=== PATIENT | female | born 1950 | race Caucasian/White ===

== ENCOUNTER → 2018-01-14 09:23 | Outpatient (CLI) | payer OTHER, SELFPAY ==
[2018-01-14 10:27] LABS: Alanine Aminotransferase 25 IU/L (9-52); Albumin 4.2 g/dL (3.5-5.0); Albumin Globulin Ratio 1.5 (1.0-2.8); Alkaline Phosphatase 76 U/L (38-126); Aspartate Aminotransferase 21 IU/L (14-36); Bilirubin Total 0.3 mg/dL (0.2-1.3); Blood Urea Nitrogen 18 mg/dL (7-17); Calcium 9.7 mg/dL (8.4-10.2); Carbon Dioxide 29 mmol/L (22-32); Chloride 101 mmol/L (98-107); Estimated Glomerular Filt Rate > 60.0 mL/min (>60); Globulin 2.8 g/dL (1.7-4.1); Glucose 92 mg/dL (80-110); HEMOLYSIS < 15 (0-50); Potassium 4.7 mmol/L (3.4-5.1); Sodium 143 mmol/L (137-145)
[2018-01-14 11:00] LABS: Vitamin D 25 Hydroxy (D3) 46.8 ng/mL (30.0-100.0)
== END ==
PROVIDERS: PCP Physician Assistant; Visit Provider Physician Assistant
DX: G43.709 Chronic migraine without aura, not intractable, without status migrainosus (principal)
CPT/HCPCS: 36415; 80053; 82306

== ENCOUNTER → 2018-01-21 10:21 | Outpatient (CLI) | payer OTHER, SELFPAY ==
--- NOTE | 2018-01-21 10:22 | DI.RAD.S_ITS ---
PROCEDURE: XR SHOULDER RT MIN 2V INDICATIONS: Pain right shoulder (delt) with abduction/internal rotation TECHNIQUE: 3 views of the shoulder were acquired. COMPARISON: [facility], , SHOULDER MINIMUM 2 VIEW LEFT, 11/14/2016, 9:18. FINDINGS: Bones: No fractures or dislocations. No suspicious bony lesions. Visualized ribs appear intact. Severe AC joint degeneration. Mild spurring and subchondral sclerosis at the glenohumeral joint Soft tissues: No suspicious soft tissue calcifications. IMPRESSION: Right shoulder degeneration as above. Dictated by: Randy Richardson M.D. on 01/21/2018 at 12:52 Approved by: Randy Richardson M.D. on 01/21/2018 at 12:53
== END ==
PROVIDERS: PCP Physician Assistant; Visit Provider Physician Assistant
DX: M25.511 Pain in right shoulder (principal); M19.011 Primary osteoarthritis, right shoulder
CPT/HCPCS: 73030

== ENCOUNTER → 2018-02-26 11:17 | Outpatient (CLI) | payer OTHER, SELFPAY ==
--- NOTE | 2018-02-26 11:18 | DI.MG.S_ITS ---
Patient Name: JAVIER MADERA date: 1950 Sex: F Attending Physician: Ramírez Indications: Date: 02/26/2018 11:40 At the request of: JAVIER STROUD Procedure: MM screening mammo BI BILATERAL DIGITAL SCREENING MAMMOGRAM 3D/2D WITH CAD: 02/26/2018 Comparison is made to exams dated: 02/05/2017 mammogram, 01/26/2016 mammogram, and 07/22/2014 mammogram - [facility]. The tissue of both breasts is heterogeneously dense. This may lower the sensitivity of mammography. Current study was also evaluated with a Computer Aided Detection (CAD) system. There are benign calcifications in both breasts. No significant masses, calcifications, or other findings are seen in either breast. There has been no significant interval change. IMPRESSION: There is no mammographic evidence of malignancy. A 1 year screening mammogram is recommended. This exam was interpreted at Station ID: [id number]. NOTE: For mammograms, a report in lay terms will be sent to the patient. Approximately 15% of breast malignancies will not be visualized mammographically. In the management of a palpable breast mass, a negative mammogram must not discourage biopsy of a clinically suspicious lesion. Electronically Signed By: Ab martinez/tina:02/26/2018 21:46:45 letter sent: Normal Exam ACR BI-RADS Category 2: Benign Finding(s) 3342F
== END ==
PROVIDERS: PCP Physician Assistant; Visit Provider Physician Assistant
DX: Z12.31 Encounter for screening mammogram for malignant neoplasm of breast (principal)
CPT/HCPCS: 77063; 77067

== ENCOUNTER → 2018-02-27 13:45 | Outpatient (CLI) | payer OTHER, SELFPAY ==
--- NOTE | 2018-02-27 14:56 | PM.TREADMILL ---
Cardiac Stress Test Report Referral & Results Date Patient Seen: 02/27/18 Requesting provider: Denia Elmore Indication: Chest pain, shortness of breath Rest ECG: Unremarkable Procedure Note: Today following both written and verbal informed consent, the patient was exercised according to a standard Elian protocol. The patient exercised for a total of 6 min 19 sec achieving a maximum heart rate of 149. Patient's maximum systolic blood pressure was 240. This was an estimated 7.0 MET's. There are no ST-T segment changes Normal heart rate response to exercise, peak blood pressure was somewhat hypertensive Oxygen saturation remained normal throughout Functional aerobic impairment rated-20% on the sedentary scale or 120% normal No dysrhythmias Impression: No evidence of ischemia Slightly hypertensive response to exercise Better than average exercise capacity Please note: Actual ECG tracings can be found in the PACS system.
== END ==
PROVIDERS: PCP Physician Assistant; Visit Provider Physician Assistant
DX: R07.9 Chest pain, unspecified (principal); R06.02 Shortness of breath; R06.09 Other forms of dyspnea
CPT/HCPCS: 93016; 93017; 93018

== ENCOUNTER → 2018-12-07 10:06 | Outpatient (CLI) | payer OTHER, SELFPAY | PROVIDERS: PCP Physician Assistant; Visit Provider Physician Assistant | DX: Z13.820 Encounter for screening for osteoporosis (principal); Z78.0 Asymptomatic menopausal state; R29.890 Loss of height; Z90.722 Acquired absence of ovaries, bilateral; Z87.891 Personal history of nicotine dependence | CPT/HCPCS: 77080 ==

== ENCOUNTER → 2019-03-16 09:19 | Outpatient (CLI) | payer MEDICARE, SELFPAY ==
--- NOTE | 2019-03-16 09:21 | DI.MG.S_ITS ---
BILATERAL DIGITAL SCREENING MAMMOGRAM 3D/2D WITH CAD: 03/16/2019 CLINICAL: Routine screening. Comparison is made to exams dated: 02/26/2018 mammogram, 02/05/2017 mammogram, 01/26/2016 mammogram, and 07/22/2014 mammogram - [facility]. The tissue of both breasts is heterogeneously dense. This may lower the sensitivity of mammography. Current study was also evaluated with a Computer Aided Detection (CAD) system. There are benign calcifications in both breasts. There is a mole marker on the right breast. There are mole markers on the left breast. No significant masses, calcifications, or other findings are seen in either breast. There has been no significant interval change. IMPRESSION: There is no mammographic evidence of malignancy. A 1 year screening mammogram is recommended. This exam was interpreted at Station ID: [id number]. NOTE: For mammograms, a report in lay terms will be sent to the patient. Approximately 15% of breast malignancies will not be visualized mammographically. In the management of a palpable breast mass, a negative mammogram must not discourage biopsy of a clinically suspicious lesion. Electronically Signed By: Ab martinez/tina:03/16/2019 10:43:16 letter sent: Normal Exam ACR BI-RADS Category 2: Benign Finding(s) 3342F
[2019-03-16 11:42] LABS: Alanine Aminotransferase 11 IU/L (<35); Albumin 4.2 g/dL (3.5-5.0); Albumin Globulin Ratio 1.2 (1.0-2.8); Alkaline Phosphatase 95 U/L (38-126); Aspartate Aminotransferase 21 IU/L (14-36); BUN Creatinine Ratio 25.6 (6-22); Bilirubin Total 0.5 mg/dL (0.2-1.3); Blood Urea Nitrogen 23 mg/dL (7-17); Calcium 9.9 mg/dL (8.4-10.2); Carbon Dioxide 27 mmol/L (22-32); Chloride 99 mmol/L (98-107); Estimated Glomerular Filt Rate > 60.0 mL/min (>60); Globulin 3.5 g/dL (1.7-4.1); Glucose 87 mg/dL (80-110); HEMOLYSIS < 15 (0-50); Potassium 4.8 mmol/L (3.4-5.1); Sodium 138 mmol/L (137-145); Total Protein 7.7 g/dL (6.3-8.2)
== END ==
PROVIDERS: PCP Physician Assistant; Visit Provider Physician Assistant
DX: Z12.31 Encounter for screening mammogram for malignant neoplasm of breast (principal); M81.0 Age-related osteoporosis without current pathological fracture; Z13.220 Encounter for screening for lipoid disorders; Z13.6 Encounter for screening for cardiovascular disorders; Z82.3 Family history of stroke; Z82.49 Family history of ischemic heart disease and other diseases of the circulatory system
CPT/HCPCS: 36415; 77063; 77067; 80053

== ENCOUNTER → 2019-10-12 10:44 | Outpatient (CLI) | payer MEDICARE, SELFPAY ==
[2019-10-12 13:58] LABS: Alanine Aminotransferase 14 IU/L (<35); Albumin 4.3 g/dL (3.5-5.0); Albumin Globulin Ratio 1.3 (1.0-2.8); Alkaline Phosphatase 110 U/L (38-126); Aspartate Aminotransferase 26 IU/L (14-36); BUN Creatinine Ratio 21.3 (6-22); Bilirubin Total 0.5 mg/dL (0.2-1.3); Blood Urea Nitrogen 19 mg/dL (7-17); Carbon Dioxide 29 mmol/L (22-32); Chloride 101 mmol/L (98-107); Estimated Glomerular Filt Rate > 60.0 mL/min (>60); Globulin 3.4 g/dL (1.7-4.1); Glucose 81 mg/dL (80-110); HEMOLYSIS < 15 (0-50); Potassium 5.1 mmol/L (3.4-5.1); Sodium 139 mmol/L (137-145); Total Protein 7.7 g/dL (6.3-8.2)
== END ==
PROVIDERS: PCP Registered Nurse; Referring Provider Registered Nurse; Visit Provider Registered Nurse
DX: I10 Essential (primary) hypertension (principal); G43.909 Migraine, unspecified, not intractable, without status migrainosus
CPT/HCPCS: 36415; 80053

== ENCOUNTER → 2019-11-30 07:36 | Outpatient (CLI) | payer MEDICARE, SELFPAY ==
[2019-11-30 08:44] LABS: Cholesterol 132 mg/dL (140-199); HDL Cholesterol 35 mg/dL (40-60); LDL Cholesterol Calculated 76 mg/dL (<100); Triglycerides 106 mg/dL (35-150)
== END ==
PROVIDERS: PCP Registered Nurse; Referring Provider Registered Nurse; Visit Provider Registered Nurse
DX: Z82.49 Family history of ischemic heart disease and other diseases of the circulatory system (principal)
CPT/HCPCS: 36415; 80061

== ENCOUNTER → 2019-12-09 09:47 | Outpatient (CLI) | payer MEDICARE, SELFPAY ==
[2019-12-09 11:17] LABS: Alanine Aminotransferase 14 IU/L (<35); Albumin 4.2 g/dL (3.5-5.0); Albumin Globulin Ratio 1.2 (1.0-2.8); Alkaline Phosphatase 104 U/L (38-126); Aspartate Aminotransferase 22 IU/L (14-36); BUN Creatinine Ratio 21.1 (6-22); Bilirubin Total 0.4 mg/dL (0.2-1.3); Blood Urea Nitrogen 20 mg/dL (7-17); Calcium 9.4 mg/dL (8.4-10.2); Carbon Dioxide 29 mmol/L (22-32); Chloride 104 mmol/L (98-107); Estimated Glomerular Filt Rate 58.5 mL/min (>60); Globulin 3.5 g/dL (1.7-4.1); Glucose 117 mg/dL (80-110); HEMOLYSIS < 15 (0-50); Potassium 4.2 mmol/L (3.4-5.1); Sodium 139 mmol/L (137-145); Total Protein 7.7 g/dL (6.3-8.2)
[2019-12-09 16:45] LABS: Microalbumin Urine Random < 0.6 mg/dL (0-1.6)
== END ==
PROVIDERS: PCP Registered Nurse; Referring Provider Registered Nurse; Visit Provider Registered Nurse
DX: I10 Essential (primary) hypertension (principal)
CPT/HCPCS: 36415; 80053; 82043; 82570

== ENCOUNTER → 2019-12-16 12:06 | Outpatient (CLI) | payer MEDICARE, SELFPAY ==
--- NOTE | 2019-12-16 12:08 | DI.US.S_ITS ---
PROCEDURE: US THYROID INDICATIONS: RIGHT NECK LUMP TECHNIQUE: Real-time scanning was performed of the thyroid gland, with image documentation. COMPARISON: None. FINDINGS: Right: Thyroid lobe measures 5.7 x 1.9 x 1.9 cm, and is homogeneous in echotexture. Left: Thyroid lobe measures 4.3 x 1.2 x 1.4 cm, and is homogenous in echotexture. Isthmus: 1.9 mm thick. Nodule number: 1 Location: Left inferior Size: 1.0 x 0.5 x 0.6 cm. Composition: Solid Echogenicity: Isoechoic Shape: wider than tall. Margins: Smooth Echogenic foci: None Total points: 3 ACR TI-RADS category: Mildly suspicious Nodule number: 2 Location: Left superior Size: 0.5 x 0.4 x 0.5 cm. Composition: Solid Echogenicity: Isoechoic Shape: wider than tall. Margins: Smooth Echogenic foci: None Total points: 3 ACR TI-RADS category: Mildly suspicious Nodule number: 3 Location: Right superior Size: 2.6 x 1.8 x 2.1 cm. Composition: Mixed cystic and solid Echogenicity: Indeterminate Shape: wider than tall. Margins: Smooth Echogenic foci: None Total points: 4 ACR TI-RADS category: Moderately suspicious Nodule number: 4 Location: Right inferior Size: 1.1 x 1.2 x 0.9 cm. Composition: Solid Echogenicity: Isoechoic Shape: wider than tall. Margins: Smooth Echogenic foci: None Total points: 3 ACR TI-RADS category: Mildly suspicious Nodule number: 5 Location: Right inferior Size: 1.0 x 0.8 x 0.9 cm. Composition: Solid Echogenicity: Hypoechoic Shape: wider than tall. Margins: Smooth Echogenic foci: None Total points: 4 ACR TI-RADS category: moderately suspicious IMPRESSION: Bilateral thyroid nodules as above. Recommend sonographically directed fine-needle aspiration involving the right #3 nodule. ACR TI-RADS definitions and recommendations: TI-RADS 1 (benign): 0 points. FNA not needed. TI-RADS 2 (not suspicious): 2 points. FNA not needed. TI-RADS 3 (mildly suspicious): 3 points. * FNA if 2.5 cm or larger, follow up if 1.5 cm or larger (at 1, 3, and 5 years). TI-RADS 4 (moderately suspicious): 4-6 points. * FNA if 1.5 cm or larger, follow up if 1 cm or larger (at 1, 2, 3, and 5 years). TI-RADS 5 (highly suspicious): 7 points or more. * FNA if 1 cm or larger, follow up if 0.5 cm or larger (every year for 5 years). Dictated by: Osorio Acuña RR Interpreted: Jorge Giles MD on 12/16/2019 at 13:13 Approved by: Jorge Giles M.D. on 12/16/2019 at 14:52
== END ==
PROVIDERS: PCP Registered Nurse; Referring Provider Registered Nurse; Visit Provider Registered Nurse
DX: E04.2 Nontoxic multinodular goiter (principal)
CPT/HCPCS: 76536

== ENCOUNTER → 2019-12-22 09:36 | Outpatient (CLI) | payer MEDICARE, SELFPAY ==
[2019-12-22 11:04] LABS: BUN Creatinine Ratio 25.5 (6-22); Blood Urea Nitrogen 25 mg/dL (7-17); Calcium 9.8 mg/dL (8.4-10.2); Carbon Dioxide 29 mmol/L (22-32); Chloride 101 mmol/L (98-107); Estimated Glomerular Filt Rate 56.4 mL/min (>60); Glucose 97 mg/dL (80-110); HEMOLYSIS < 15 (0-50); Potassium 4.8 mmol/L (3.4-5.1); Sodium 137 mmol/L (137-145)
[2019-12-22 11:23] LABS: Free T4, Direct Thyroxine 1.11 ng/dL (0.78-2.19)
[2019-12-22 11:37] LABS: Thyroid Stimulating Hormone 1.72 uIU/mL (0.47-4.68)
== END ==
PROVIDERS: PCP Registered Nurse; Referring Provider Registered Nurse; Visit Provider Registered Nurse
DX: N28.9 Disorder of kidney and ureter, unspecified (principal); R22.1 Localized swelling, mass and lump, neck
CPT/HCPCS: 36415; 80048; 84439; 84443

== ENCOUNTER → 2020-01-20 12:33 | Outpatient (CLI) | payer MEDICARE, SELFPAY ==
[2020-01-20 13:55] LABS: Thyroid Stimulating Hormone 1.55 uIU/mL (0.47-4.68)
== END ==
PROVIDERS: PCP Registered Nurse; Referring Provider Otolaryngology; Visit Provider Otolaryngology
DX: E04.1 Nontoxic single thyroid nodule (principal)
CPT/HCPCS: 36415; 84443

== ENCOUNTER → 2020-01-26 11:19 | Outpatient (CLI) | payer MEDICARE, SELFPAY ==
[2020-01-26 12:47] LABS: Add Manual Diff / Slide Review NO; Basophils Absolute Auto 0 /uL (0-100); Basophils Percent Auto 0.4 % (0-2); Eosinophils Absolute Auto 200 /uL (0-450); Eosinophils Percent Auto 2.8 % (2-4); Lymphocytes Absolute Auto 1100 /uL (1100-4500); Lymphocytes Percent Auto 20.1 % (25-40); Mean Corpuscular HGB Conc 32.1 % (30-36); Mean Corpuscular Hemoglobin 25.8 PG (26-34); Mean Corpuscular Volume 80.4 fL (80-100); Monocytes Absolute Auto 400 /uL (0-900); Monocytes Percent Auto 6.2 % (3-14); Neutrophils Absolute Auto 4000 /uL (1500-7000); Neutrophils Percent Auto 70.5 % (50-75); Platelet Count 341 X10^3/uL (150-400); Red Blood Cell Count 3.86 X10^6/uL (4.0-5.2); Red Cell Distribution Width 16.6 % (11.6-14.8); White Blood Cell Count 5.7 X10^3/uL (4.5-11.0)
== END ==
PROVIDERS: PCP Registered Nurse; Referring Provider Registered Nurse; Visit Provider Registered Nurse
DX: M81.0 Age-related osteoporosis without current pathological fracture (principal); Z13.6 Encounter for screening for cardiovascular disorders
CPT/HCPCS: 36415; 85025

== ENCOUNTER → 2020-01-27 12:19 | Outpatient (CLI) | payer MEDICARE, SELFPAY ==
[2020-01-27 12:55] LABS: Add Manual Diff / Slide Review NO; Basophils Absolute Auto 0 /uL (0-100); Basophils Percent Auto 0.2 % (0-2); Eosinophils Absolute Auto 100 /uL (0-450); Eosinophils Percent Auto 2.2 % (2-4); Hemoglobin 10.2 g/dL (12.0-16.0); Lymphocytes Absolute Auto 1200 /uL (1100-4500); Lymphocytes Percent Auto 21.2 % (25-40); Mean Corpuscular Hemoglobin 26.2 PG (26-34); Mean Corpuscular Volume 79.6 fL (80-100); Monocytes Absolute Auto 300 /uL (0-900); Monocytes Percent Auto 4.7 % (3-14); Neutrophils Absolute Auto 4200 /uL (1500-7000); Neutrophils Percent Auto 71.7 % (50-75); Platelet Count 325 X10^3/uL (150-400); Red Blood Cell Count 3.89 X10^6/uL (4.0-5.2); Red Cell Distribution Width 16.6 % (11.6-14.8); White Blood Cell Count 5.9 X10^3/uL (4.5-11.0)
[2020-01-27 13:40] LABS: Total Iron Binding Capacity 272 ug/dL (265-497)
[2020-01-27 13:45] LABS: Ferritin 91 ng/mL (11-264)
[2020-01-27 14:16] LABS: Folate > 20.0 ng/mL (2.76-20.0); Vitamin B12 408 pg/mL (239-931)
== END ==
PROVIDERS: PCP Registered Nurse; Referring Provider Registered Nurse; Visit Provider Registered Nurse
DX: D64.9 Anemia, unspecified (principal); M81.0 Age-related osteoporosis without current pathological fracture; Z13.6 Encounter for screening for cardiovascular disorders
CPT/HCPCS: 36415; 82607; 82728; 82746; 83550; 85025

== ENCOUNTER → 2020-02-14 10:08 | Outpatient (CLI) | payer MEDICARE, SELFPAY ==
[2020-02-15 16:38] LABS: Fecal Immunochemical Test Negative (Negative)
== END ==
PROVIDERS: PCP Registered Nurse; Referring Provider Registered Nurse; Visit Provider Registered Nurse
DX: D64.9 Anemia, unspecified (principal)
CPT/HCPCS: 82274

== ENCOUNTER → 2020-03-16 15:44 | Outpatient (CLI) | payer MEDICARE, SELFPAY ==
[2020-03-16] MEDS: COVID-19 VACC #1, MRNA(MOD) 100 MCG/0.5 ML VIAL IM (15:48)
== END ==
PROVIDERS: PCP Registered Nurse; Visit Provider Internal Medicine
DX: Z23 Encounter for immunization (principal)
CPT/HCPCS: 0011A; 91301

== ENCOUNTER → 2020-03-30 11:01 | Outpatient (CLI) | payer MEDICARE, SELFPAY ==
--- NOTE | 2020-03-30 11:03 | DI.MG.S_ITS ---
BILATERAL DIGITAL SCREENING MAMMOGRAM 3D/2D WITH CAD: 03/30/2020 CLINICAL: Routine screening. Comparison is made to exams dated: 03/16/2019 mammogram, 02/26/2018 mammogram, and 02/05/2017 mammogram - [facility]. The tissue of both breasts is heterogeneously dense. This may lower the sensitivity of mammography. Current study was also evaluated with a Computer Aided Detection (CAD) system. There are benign calcifications in both breasts. There is a mole marker on the right breast. There are mole markers on the left breast. No significant masses, calcifications, or other findings are seen in either breast. There has been no significant interval change. IMPRESSION: BENIGN There is no mammographic evidence of malignancy. A 1 year screening mammogram is recommended. This exam was interpreted at Station ID: [id number]. NOTE: For mammograms, a report in lay terms will be sent to the patient. Approximately 15% of breast malignancies will not be visualized mammographically. In the management of a palpable breast mass, a negative mammogram must not discourage biopsy of a clinically suspicious lesion. Electronically Signed By: Nikita ruggiero/tina:03/30/2020 14:26:23 letter sent: Normal Exam ACR BI-RADS Category 2: Benign Finding(s) 3342F
== END ==
PROVIDERS: PCP Registered Nurse; Referring Provider Registered Nurse; Visit Provider Registered Nurse
DX: Z12.31 Encounter for screening mammogram for malignant neoplasm of breast (principal)
CPT/HCPCS: 77063; 77067

== ENCOUNTER → 2020-04-04 12:50 | Outpatient (CLI) | payer MEDICARE, SELFPAY ==
[2020-04-04 15:33] LABS: Thyroid Stimulating Hormone 2.21 uIU/mL (0.47-4.68)
[2020-04-04 15:44] LABS: Alanine Aminotransferase 15 IU/L (<35); Albumin 3.8 g/dL (3.5-5.0); Albumin Globulin Ratio 1.3 (1.0-2.8); Alkaline Phosphatase 100 U/L (38-126); Aspartate Aminotransferase 24 IU/L (14-36); BUN Creatinine Ratio 19.4 (6-22); Bilirubin Total 0.1 mg/dL (0.2-1.3); Blood Urea Nitrogen 20 mg/dL (7-17); Calcium 9.5 mg/dL (8.4-10.2); Carbon Dioxide 30 mmol/L (22-32); Chloride 103 mmol/L (98-107); Estimated Glomerular Filt Rate 53.3 mL/min (>60); Glucose 89 mg/dL (80-110); HEMOLYSIS < 15 (0-50); Potassium 4.4 mmol/L (3.4-5.1); Sodium 139 mmol/L (137-145); Total Protein 6.8 g/dL (6.3-8.2)
== END ==
PROVIDERS: PCP Registered Nurse; Referring Provider Otolaryngology; Visit Provider Otolaryngology
DX: E03.9 Hypothyroidism, unspecified (principal); I10 Essential (primary) hypertension; R89.9 Unspecified abnormal finding in specimens from other organs, systems and tissues
CPT/HCPCS: 36415; 80053; 84443

== ENCOUNTER → 2020-04-13 16:07 | Outpatient (CLI) | payer MEDICARE, SELFPAY ==
[2020-04-13] MEDS: COVID-19 VACC #2, MRNA(MOD) 100 MCG/0.5 ML VIAL IM (16:20)
== END ==
PROVIDERS: PCP Registered Nurse; Visit Provider Internal Medicine
DX: Z23 Encounter for immunization (principal)
CPT/HCPCS: 0012A; 91301

== ENCOUNTER → 2020-04-17 12:45 | Outpatient (CLI) | payer MEDICARE, SELFPAY ==
[2020-04-17 13:56] LABS: Add Manual Diff / Slide Review NO; Basophils Absolute Auto 0 /uL (0-100); Basophils Percent Auto 0.5 % (0-2); Eosinophils Absolute Auto 200 /uL (0-450); Eosinophils Percent Auto 3.5 % (2-4); Hematocrit 29.7 % (36-46); Hemoglobin 9.6 g/dL (12.0-16.0); Lymphocytes Absolute Auto 1300 /uL (1100-4500); Lymphocytes Percent Auto 22.8 % (25-40); Mean Corpuscular HGB Conc 32.4 % (30-36); Mean Corpuscular Hemoglobin 26.2 PG (26-34); Mean Corpuscular Volume 80.9 fL (80-100); Monocytes Absolute Auto 400 /uL (0-900); Monocytes Percent Auto 6.4 % (3-14); Neutrophils Absolute Auto 3900 /uL (1500-7000); Neutrophils Percent Auto 66.8 % (50-75); Platelet Count 348 X10^3/uL (150-400); Red Blood Cell Count 3.68 X10^6/uL (4.0-5.2); Red Cell Distribution Width 16.1 % (11.6-14.8); White Blood Cell Count 5.9 X10^3/uL (4.5-11.0)
== END ==
PROVIDERS: PCP Registered Nurse; Referring Provider Registered Nurse; Visit Provider Registered Nurse
DX: D64.9 Anemia, unspecified (principal)
CPT/HCPCS: 36415; 85025

== ENCOUNTER → 2021-04-21 18:46 | Outpatient (CLI) | payer MEDICARE, SELFPAY ==
--- NOTE | 2021-04-21 18:49 | DI.RAD.S_ITS ---
PROCEDURE: XR ANKLE LT MIN 3V INDICATIONS: Ankle injury TECHNIQUE: 3 views of the ankle were acquired. COMPARISON: None. FINDINGS: Bones: No fractures or dislocations. Ankle mortise is normally aligned. No suspicious bony lesions. Plantar calcaneal bone spur. Soft tissues: No tibiotalar joint effusion. Achilles tendon appears normal. Lateral soft tissue swelling is noted and ligamentous injury cannot be excluded. IMPRESSION: No fracture. No osseous lesion. If symptoms and/or clinical suspicion for pathology persists, further assessment with repeat radiographs (7-10 days) or advanced imaging (e.g. CT, MRI or bone scan) should be considered. Dictated by: Namita Flannery MD, PhD on 04/21/2021 at 19:21 Approved by: Namita Flannery MD, PhD on 04/21/2021 at 19:22
== END ==
PROVIDERS: PCP Internal Medicine Geriatric Medicine; Referring Provider Nurse Practitioner Family; Visit Provider Nurse Practitioner Family
DX: S99.912A Unspecified injury of left ankle, initial encounter (principal); X58.XXXA Exposure to other specified factors, initial encounter
CPT/HCPCS: 73610

== ENCOUNTER 2021-06-26 10:51 | Emergency (ER) | payer MEDICARE, SELFPAY ==
[2021-06-26] VITALS (16 sets, daily range): BP systolic 116–195; BP diastolic 63–101; PULSE 47–63; RESP 12–36; TEMP 36.6; O2SAT 96–99; BMI 32.8
--- NOTE | 2021-06-26 11:09 | DI.RAD.S_ITS ---
PROCEDURE: XR CHEST 1V INDICATIONS: chest pain TECHNIQUE: One view of the chest was acquired. COMPARISON: None. FINDINGS: Surgical changes and devices: None. Lungs and pleura: Lungs are clear. No pleural effusions or pneumothorax. Mediastinum: Mediastinal contours appear normal. Heart size is normal. Bones and chest wall: No suspicious bony lesions. Overlying soft tissues appear unremarkable. IMPRESSION: No acute cardiopulmonary process demonstrated radiographically. Dictated by: Endy Laguna M.D. on 06/26/2021 at 11:58 Approved by: Endy Laguna M.D. on 06/26/2021 at 11:58
[2021-06-26 11:32] LABS: Add Manual Diff / Slide Review NO; Basophils Absolute Auto 0 /uL (0-100); Basophils Percent Auto 0.9 % (0-2); Eosinophils Absolute Auto 200 /uL (0-450); Eosinophils Percent Auto 4.7 % (2-4); Hematocrit 36.5 % (36-46); Hemoglobin 12.1 g/dL (12.0-16.0); Lymphocytes Absolute Auto 1400 /uL (1100-4500); Lymphocytes Percent Auto 31.9 % (25-40); Mean Corpuscular HGB Conc 33.2 % (30-36); Mean Corpuscular Hemoglobin 29.7 PG (26-34); Mean Corpuscular Volume 89.5 fL (80-100); Monocytes Absolute Auto 400 /uL (0-900); Monocytes Percent Auto 9.8 % (3-14); Neutrophils Absolute Auto 2400 /uL (1500-7000); Neutrophils Percent Auto 52.7 % (50-75); Platelet Count 378 X10^3/uL (150-400); Red Blood Cell Count 4.08 X10^6/uL (4.0-5.2); Red Cell Distribution Width 14.8 % (11.6-14.8); White Blood Cell Count 4.5 X10^3/uL (4.5-11.0)
--- NOTE | 2021-06-26 11:35 | ED.CHESTPAIN ---
HPI - Chest Pain General Chief Complaint: Chest Pain Stated Complaint: Chest pain Time Seen by Provider: 06/26/21 11:20 Source: patient Mode of arrival: Ambulatory History of Present Illness HPI narrative: 70-year-old female with history of renal cancer with partial left nephrectomy and total right nephrectomy, recurrent UTIs presenting today with epigastric and upper abdominal pain. She was seen evaluated last week by her primary care provider for some right flank pain. Thought to possibly be due to muscle strain although she does not remember a specific injury. It is not radiating down her leg occasionally goes to her abdomen, she started taking tizanidine, no significant relief. Today while resting she started having sudden onset epigastric pain Related Data Home Medications Medication Instructions Recorded Confirmed acetaminophen 650 mg 650 mg PO ONCE PRN 01/20/18 04/21/21 tablet,extended release phenazopyridine 95 mg tablet (Azo 95 mg PO TID PRN 08/11/18 04/21/21 Urinary Pain Relief) multivitamin (Daily Multi-Vitamin) 1 tab PO DAILY 11/26/19 04/21/21 Previous Rx's Medication Instructions Recorded trazodone 50 mg tablet 50 mg PO HS PRN PRN #90 tab 02/22/19 estradiol (Estrace) 1 gram VAG DAILY #85 gram 02/23/19 butalbital 50 mg-acetaminophen 325 1 tab PO Q4HP PRN #90 tab 03/22/19 mg tablet (Tencon) kqikreztvv-pqbvuecbmkvln-kgvdyzgp 1 tab PO Q4H PRN #90 tab 03/22/19 50 mg-325 mg-40 mg tablet cephalexin 500 mg capsule 500 mg PO BID PRN #60 cap 12/14/19 lisinopril 5 mg tablet 10 mg PO DAILY #180 tab 03/03/20 alendronate 70 mg tablet See Rx Instructions .ROUTE 06/29/20 .COMPLEX #12 tab verapamil 360 mg 24 hr See Rx Instructions .ROUTE 07/19/20 capsule,extended release .COMPLEX #90 cap hydrocodone 5 mg-acetaminophen 325 1 tab PO Q6H PRN #10 tab 06/26/21 mg tablet Allergies Allergy/AdvReac Type Severity Reaction Status Date / Time No Known Drug Allergies Allergy Verified 04/21/21 18:30 Review of Systems Review of Systems Narrative: GENERAL: Denies chills, fatigue, malaise, fever, sweats, travel HEENT: Denies sinus pain, ear pain, sore throat, difficulty swallowing, neck pain RESPIRATORY: Denies dyspnea, cough, wheezing, hemoptysis, sputum. CARDIOVASCULAR: Denies chest pain, palpitations, orthopnea, edema GASTROINTESTINAL: See HPI : See HPI MUSCULOSKELETAL: See HPI SKIN: No rash, no erythema, no pruritus NEUROLOGIC: Denies weakness, dizziness, headache, numbness, change in speech, confusion PSYCHIATRIC: No concerning psychosocial issues. 12 point review of systems is negative except for those stated above and HPI Patient History Surgical History H/O bladder repair surgery Status post bunionectomy Status post hysterectomy Status post tubal ligation Family History Father Heart attack Stroke Sister Malignant neoplasm of colon, unspecified part of colon Social History Smoking Status: Former smoker Tobacco: How many years used: 30 second hand exposure: No alcohol intake: current substance use type: does not use Smoking Status: Former smoker Alcohol type: other Substance Use Type: does not use Exam Initial Vital Signs Initial Vital Signs: Vital Signs Temperature 97.9 F 06/26/21 11:03 Pulse Rate 57 L 06/26/21 11:03 Respiratory Rate 17 06/26/21 11:03 Blood Pressure 116/63 06/26/21 11:03 Pulse Oximetry 98 06/26/21 11:03 GENERAL: Alert 70-year-old female appears uncomfortable HEENT: Head atraumatic,EOMI, pupils reactive, face symmetric, moist mucous membranes CARDIOVASCULAR: Regular rate and rhythm without murmurs, rubs or gallops. RESPIRATORY: Breath sounds equal bilaterally, no wheezes rales or rhonchi. ABDOMEN: Soft, tender epigastric right upper quadrant greater than left upper quadrant, no lower abdominal pain : Mild right flank pain no guarding or rebound EXTREMITIES: Normal range of motion, no clubbing or edema. Neurovascularly intact NEUROLOGICAL: Alert and oriented x4.Normal gait and speech. SKIN: Warm, dry, no laceration, no petechiae, no rashes or lesions. Scores HEART Score Heart Score history: Slightly Suspicious Heart Score EKG: Normal Heart Score Age: > or = 65 years old Heart Score risk factors: 1-2 risk factors Heart Score troponin: < or = to normal limit Heart Score Total: 3 Course Orders Ordered: ED Orders 06/26/21 11:09 XR chest 1V Stat EKG-12 Lead Stat 06/26/21 11:22 Complete Blood Count AUTO DIFF Stat Comprehensive Metabolic Panel Stat Lipase Stat Magnesium Stat Troponin & CK Cardiac Panel Stat 06/26/21 11:47 US abdomen limited Stat 06/26/21 11:49 CT abdomen pelvis wo con Stat 06/26/21 14:20 Trop I [Troponin I] Stat 06/26/21 15:24 EKG-12 Lead Routine Discontinued Medications Morphine Sulfate (Morphine 2 Mg/Ml Inj) 2 mg IV NOW ONE Stop: 06/26/21 11:48 Last Admin: 06/26/21 12:07 Dose: 2 mg Documented by: MEG Ondansetron HCl (Ondansetron 4 Mg/2 Ml Inj) 4 mg IV NOW ONE Stop: 06/26/21 12:18 Last Admin: 06/26/21 13:01 Dose: Not Given Documented by: PHI Vital Signs Vital signs: Vital Signs - 8 hr 06/26/21 11:30 06/26/21 11:31 06/26/21 12:05 Pulse Rate 51 L 53 L 48 L Respiratory Rate 30 H 33 H 36 H Blood Pressure 182/79 H Pulse Oximetry 98 98 99 06/26/21 12:30 06/26/21 13:00 06/26/21 13:30 Pulse Rate 47 L 63 53 L Respiratory Rate 22 19 13 Blood Pressure Pulse Oximetry 98 98 98 06/26/21 14:00 06/26/21 14:24 06/26/21 14:30 Pulse Rate 51 L 53 L 51 L Respiratory Rate 12 15 17 Blood Pressure 155/67 H Pulse Oximetry 97 97 97 06/26/21 15:00 06/26/21 15:11 06/26/21 15:30 Pulse Rate 54 L 55 L Respiratory Rate 13 20 Blood Pressure 179/78 H Pulse Oximetry 99 99 06/26/21 15:31 Pulse Rate 55 L Respiratory Rate 21 Blood Pressure 140/63 Pulse Oximetry 99 MDM - Chest Pain Lab Data Result diagrams: 06/26/21 11:22 06/26/21 11:22 Labs: Lab Results 06/26/21 06/26/21 06/26/21 Range/Units 11:22 11:22 14:20 WBC 4.5 (4.5-11.0) X10^3/uL RBC 4.08 (4.0-5.2) X10^6/uL Hgb 12.1 (12.0-16.0) g/dL Hct 36.5 (36-46) % MCV 89.5 (80-100) fL MCH 29.7 (26-34) PG MCHC 33.2 (30-36) % RDW 14.8 (11.6-14.8) % Plt Count 378 (150-400) X10^3/uL Neut % (Auto) 52.7 (50-75) % Lymph % (Auto) 31.9 (25-40) % [place] % (Auto) 9.8 (3-14) % Eos % (Auto) 4.7 H (2-4) % Baso % (Auto) 0.9 (0-2) % Neut # (Auto) 2400 (6161-4094) /uL Lymph # (Auto) 1400 (7517-2306) /uL [place] # (Auto) 400 (0-900) /uL Eos # (Auto) 200 (0-450) /uL Baso # (Auto) 0 (0-100) /uL Sodium 139 (137-145) mmol/L Potassium 4.4 (3.4-5.1) mmol/L Chloride 104 (98-107) mmol/L Carbon Dioxide 24 (22-32) mmol/L BUN 28 H (7-17) mg/dL Creatinine 1.53 H (0.52-1.04) mg/dL Estimated GFR 37 L (>60) mL/min BUN/Creatinine Ratio 18.3 (6-22) Glucose 119 H (80-110) mg/dL Calcium 10.2 (8.4-10.2) mg/dL Magnesium 2.1 (1.6-2.3) mg/dL Total Bilirubin 0.4 (0.2-1.3) mg/dL AST 31 (14-36) IU/L ALT 15 (<35) IU/L Alkaline Phosphatase 85 (38-126) U/L Total Creatine Kinase 70 (30-135) U/L CK-MB (CK-2) TNP CK-MB (CK-2) Rel Index TNP Troponin I < 0.012 < 0.012 (0.01-0.034) ng/mL Total Protein 7.7 (6.3-8.2) g/dL Albumin 4.7 (3.5-5.0) g/dL Globulin 3.0 (1.7-4.1) g/dL Albumin/Globulin Ratio 1.6 (1.0-2.8) Lipase 157 (23-300) U/L Imaging Data Chest x-ray: Radiologist's Impression: Signed Patient: Denia Garay MR#: [id number] : 1950 Acct:[id number] Age/Sex: 70 / F Date of Service: 06/26/21 Loc: ED Accession Number: [id number] ?? Procedure: XR chest 1V Ordering Provider: Nivia Delacruz D.O. PROCEDURE:? XR CHEST 1V ? INDICATIONS:? chest pain ? TECHNIQUE:? One view of the chest was acquired.? ? COMPARISON:? None. ? FINDINGS:? ? Surgical changes and devices:? None.? ? Lungs and pleura:? Lungs are clear.? No pleural effusions or pneumothorax.? ? Mediastinum:? Mediastinal contours appear normal.? Heart size is normal.? ? Bones and chest wall:? No suspicious bony lesions.? Overlying soft tissues appear unremarkable.? ? IMPRESSION:? No acute cardiopulmonary process demonstrated radiographically. ? ? Dictated by: Endy Laguna M.D. on 06/26/2021 at 11:58 ? ? Approved by: Endy Laguna M.D. on 06/26/2021 at 11:58 ? US - abdomen: Radiologist's Impression: Signed Patient: Denia Garay MR#: [id number] : 1950 Acct:[id number] Age/Sex: 70 / F Date of Service: 06/26/21 Loc: ED Accession Number: [id number] ?? Procedure: US abdomen limited Ordering Provider: Nivia eDlacruz D.O. PROCEDURE:? US ABDOMEN LIMITED ? INDICATIONS:? RUQ PAIN ? TECHNIQUE:? Real-time scanning was performed of the abdominal and retroperitoneal organs, with image documentation.? ? COMPARISON:? None. ? FINDINGS:? ? Liver:? Liver is normal in size and homogeneous in echotexture.? ? Gallbladder:? No stones.? No wall thickening or pericholecystic fluid.? ? Biliary ducts:? Intrahepatic bile ducts are non-dilated.? Extrahepatic bile duct caliber measures 6.6 mm.? Normal is 6-7 mm or less in diameter, or 10 mm or less post-cholecystectomy.? ? Pancreas:? Not visualized due to overlying bowel. ? Miscellaneous:? No free abdominal fluid.? ? ? IMPRESSION:? 1. No acute ultrasound abnormality. 2. Common bile duct is at the upper limits of normal but has no evidence of obstruction.? Dictated by: Alfie Penn M.D. on 06/26/2021 at 13:18 ? ? Approved by: Alfie Penn M.D. on 06/26/2021 at 13:20 CT scan - abdomen/pelvis: Radiologist's Impression: tient: Denia Garay MR#: [id number] : 1950 Acct:[id number] Age/Sex: 70 / F Date of Service: 06/26/21 Loc: ED Accession Number: [id number] ?? Procedure: CT abdomen pelvis wo con Ordering Provider: Nivia Delacruz D.O. PROCEDURE:? CT ABDOMEN PELVIS WO CON ? INDICATIONS:? right flank pain epigastric apain, hx renal cancer ? TECHNIQUE:? Axial sections were acquired from the lung bases to the pubic symphysis.? Coronal and sagittal reformats were performed.? For radiation dose reduction, the following was used: ?automated exposure control, adjustment of mA and/or kV according to patient size.? ? COMPARISON:? [facility], CT, CT CHEST ABDOMEN PELVIS WITH CONTRAST, 05/08/2021, 10:32. ? FINDINGS:? Image quality:? Excellent.? ? Lung bases:? Unremarkable.? ? Heart:? No significant findings. ? URINARY: Kidneys and ureters:? No hydronephrosis. ? Bladder:? Normal wall thickness. No stones. ? ? ? ABDOMEN: Liver:? Unremarkable.? ? Gallbladder:? Unremarkable.? ? Biliary ducts:? Unremarkable.? ? Pancreas:? Postsurgical changes are seen at the pancreatic tail.? ? Spleen:? Absent.? ? Adrenal Glands:? Unremarkable.? ? ? Stomach and Bowel:? Small hiatal hernia.? Multiple diverticula are seen in the colon without signs of acute diverticulitis.? Normal appendix. Peritoneum:? No abnormal intraperitoneal fluid.? No free air.? ? Ventral Wall: ? No hernia.? Abdominal Nodes:? No enlarged retroperitoneal or mesenteric lymph nodes.? Vessels:? Aorta and inferior vena cava are normal in size.? ? PELVIS: Pelvic Organs:? Status post hysterectomy.? ? Pelvic Nodes: Unremarkable. Miscellaneous:? Small fat containing left inguinal hernia. ? ? ? Bones:? Degenerative changes are seen in the spine. ? IMPRESSION:? 1. No acute abnormality is seen in the abdomen or pelvis. 2. Stable postsurgical changes. 3. Colonic diverticulosis without signs of acute diverticulitis.? ? Dictated by: Jose Anderson M.D. on 06/26/2021 at 13:09 ? ? Approved by: Jose Anderson M.D. on 06/26/2021 at 13:18 ? ECG Data Interpretation: Normall sinus rhythm rate 56 [place] interval 154 QRS [address] changes no T-wave inversions no priors to compare MDM Narrative Medical decision making narrative: The patient presents with band like discomfort across her upper upper abdomen. She is more tender on the right then leftt. Imaging today is negative no sign of cholelithiasis or acute cholecystitis. Pain is significantly improved after 1 dose of morphine. She was having some right flank pain as well last week pain seems to have subsided as well with morphine. CT was done without contrast due to 1 kidney and kidney function. His it does not assess for dissection however patient's symptoms are not necessarily consistent with dissection. Pain across epigastric area does not move more tender in the right and left upper quadrants she has minimal right flank pain that has been there for over 1 week. She was worried that this epigastric pain may be a side effect of muscle relaxer however this is highly unlikely. Discharge Plan Departure Patient Disposition: Home Clinical Impression: Atypical chest pain Instructions: DI for Atypical Chest Pain Activity Restrictions/Additional Instructions: *You have been diagnosed with atypical chest pain *What to do: At this time it is unclear what is causing your pain and discomfort. CT and ultrasound do not show any abnormality. You may require further cardiac testing such as a stress test and echocardiogram although this can be done with your primary care provider *Continue to take medications as directed [place] 1 tablet every 6 hours only as needed for severe pain--> SENT TO [facility] *Follow up with your primary care provider in 2-3 days or call [phone] *Return to ER if you should have increasing pain persistent vomiting, shortness of breath or any new, worsening or concerning symptoms CONTROLLED SUBSTANCE DISCHARGE (Narcotoic/benzodiazepine/Flexeril/Phenergan) 1. You have been prescribed narcotic medications, it does have acetaminophen/Tylenol/paracetamol in it, DO NOT TAKE MORE THAN 4,00mg in 24 hours of Tylenol. TRAMADOL DOES NOT CONTAIN TYLENOL 2. Please understand that we cannot provide further refills of narcotics, benzodiazepines or controlled substances through the ED and her pain management will need to be through your provider. 3. While on these medications you cannot drive or operate heavy machinery. 4. You cannot sign legal documents or perform any duties such as this. 5. As long as you're taking opiate pain medications he should also be taking a stool softener such as Colace, Dulcolax, MiraLAX or prune juice, to help avoid constipation. Prescriptions: New hydrocodone-acetaminophen 5-325 mg tablet 1 tab PO Q6H PRN (Reason: pain) Qty: 10 0RF No Action acetaminophen 650 mg tablet extended release 650 mg PO ONCE PRN0RF trazodone 50 mg tablet 50 mg PO HS PRN PRN (Reason: insomnia) Qty: 90 3RF estradiol [Estrace] 0.01 % (0.1 mg/gram) cream 1 gram VAG DAILY Qty: 85 3RF cephalexin 500 mg capsule 500 mg PO BID PRN (Reason: reccurring UTIs) Qty: 60 0RF lisinopril 5 mg tablet 10 mg PO DAILY Qty: 180 1RF alendronate 70 mg tablet See Rx Instructions .ROUTE .COMPLEX Qty: 12 2RF Dose Instruction: TAKE 1 TABLET EVERY WEEK Rx Instructions: TAKE 1 TABLET EVERY WEEK verapamil 360 mg capsule,ext rel. pellets 24 hr See Rx Instructions .ROUTE .COMPLEX Qty: 90 0RF Dose Instruction: TAKE 1 CAPSULE DAILY FOR HYPERTENSION Rx Instructions: TAKE 1 CAPSULE DAILY FOR HYPERTENSION phenazopyridine [Azo Urinary Pain Relief] 95 mg tablet 95 mg PO TID PRN0RF multivitamin [Daily Multi-Vitamin] Tablet 1 tab PO DAILY 0RF butalbital-acetaminophen [Tencon] 50-325 mg tablet 1 tab PO Q4HP PRN (Reason: headache) Qty: 90 1RF toolziqgna-akwxgjunziwvd-rqpm 50-325-40 mg tablet 1 tab PO Q4H PRN (Reason: headache) Qty: 90 1RF Referrals: Emma Garrison MD [Primary Care Provider] -
[2021-06-26 11:44] LABS: Alanine Aminotransferase 15 IU/L (<35); Albumin 4.7 g/dL (3.5-5.0); Albumin Globulin Ratio 1.6 (1.0-2.8); Alkaline Phosphatase 85 U/L (38-126); Aspartate Aminotransferase 31 IU/L (14-36); BUN Creatinine Ratio 18.3 (6-22); Bilirubin Total 0.4 mg/dL (0.2-1.3); Blood Urea Nitrogen 28 mg/dL (7-17); Calcium 10.2 mg/dL (8.4-10.2); Carbon Dioxide 24 mmol/L (22-32); Chloride 104 mmol/L (98-107); Creatine Kinase 70 U/L (30-135); Estimated Glomerular Filt Rate 37 mL/min (>60); Glucose 119 mg/dL (80-110); HEMOLYSIS < 15 (0-50); Lipase 157 U/L (23-300); Magnesium 2.1 mg/dL (1.6-2.3); Potassium 4.4 mmol/L (3.4-5.1); Sodium 139 mmol/L (137-145); Total Protein 7.7 g/dL (6.3-8.2)
--- NOTE | 2021-06-26 11:47 | DI.US.S_ITS ---
PROCEDURE: US ABDOMEN LIMITED INDICATIONS: RUQ PAIN TECHNIQUE: Real-time scanning was performed of the abdominal and retroperitoneal organs, with image documentation. COMPARISON: None. FINDINGS: Liver: Liver is normal in size and homogeneous in echotexture. Gallbladder: No stones. No wall thickening or pericholecystic fluid. Biliary ducts: Intrahepatic bile ducts are non-dilated. Extrahepatic bile duct caliber measures 6.6 mm. Normal is 6-7 mm or less in diameter, or 10 mm or less post-cholecystectomy. Pancreas: Not visualized due to overlying bowel. Miscellaneous: No free abdominal fluid. IMPRESSION: 1. No acute ultrasound abnormality. 2. Common bile duct is at the upper limits of normal but has no evidence of obstruction. Dictated by: Alfie Penn M.D. on 06/26/2021 at 13:18 Approved by: Alfie Penn M.D. on 06/26/2021 at 13:20
--- NOTE | 2021-06-26 11:49 | DI.CT.S_ITS ---
PROCEDURE: CT ABDOMEN PELVIS WO CON INDICATIONS: right flank pain epigastric apain, hx renal cancer TECHNIQUE: Axial sections were acquired from the lung bases to the pubic symphysis. Coronal and sagittal reformats were performed. For radiation dose reduction, the following was used: automated exposure control, adjustment of mA and/or kV according to patient size. COMPARISON: [facility], CT, CT CHEST ABDOMEN PELVIS WITH CONTRAST, 05/08/2021, 10:32. FINDINGS: Image quality: Excellent. Lung bases: Unremarkable. Heart: No significant findings. URINARY: Kidneys and ureters: No hydronephrosis. Bladder: Normal wall thickness. No stones. ABDOMEN: Liver: Unremarkable. Gallbladder: Unremarkable. Biliary ducts: Unremarkable. Pancreas: Postsurgical changes are seen at the pancreatic tail. Spleen: Absent. Adrenal Glands: Unremarkable. Stomach and Bowel: Small hiatal hernia. Multiple diverticula are seen in the colon without signs of acute diverticulitis. Normal appendix. Peritoneum: No abnormal intraperitoneal fluid. No free air. Ventral Wall: No hernia. Abdominal Nodes: No enlarged retroperitoneal or mesenteric lymph nodes. Vessels: Aorta and inferior vena cava are normal in size. PELVIS: Pelvic Organs: Status post hysterectomy. Pelvic Nodes: Unremarkable. Miscellaneous: Small fat containing left inguinal hernia. Bones: Degenerative changes are seen in the spine. IMPRESSION: 1. No acute abnormality is seen in the abdomen or pelvis. 2. Stable postsurgical changes. 3. Colonic diverticulosis without signs of acute diverticulitis. Dictated by: Jose Andreson M.D. on 06/26/2021 at 13:09 Approved by: Jose Anderson M.D. on 06/26/2021 at 13:18
[2021-06-26 11:55] LABS: Troponin I < 0.012 ng/mL (0.01-0.034)
[2021-06-26] MEDS: MORPHINE 2 MG/ML INJ IV (12:07)
[2021-06-26 14:57] LABS: Troponin I < 0.012 ng/mL (0.01-0.034)
== END 2021-06-26 15:56 | disposition home or self-care (01) ==
PROVIDERS: Emergency Provider Emergency Medicine; PCP Internal Medicine Geriatric Medicine
DX: R07.89 Other chest pain (principal); R10.13 Epigastric pain
CPT/HCPCS: 36415; 71045; 74176; 76705; 80053; 82550; 83690; 83735; 84484; 85025; 93005; 96374; 99284; J2270; J2405

== ENCOUNTER 2023-08-05 14:30 | Outpatient (RCR) | payer MEDICARE, SELFPAY ==
--- NOTE | 2023-07-08 15:45 | PT.OIE ---
Current Diagnoses Other chronic pain (07/08/23) Low back pain, unspecified (07/08/23) Weakness (07/08/23) Past Surgical History (Last Reviewed 06/26/21 @ 11:58 by Nivia Delacruz DO) H/O bladder repair surgery Status post bunionectomy Status post hysterectomy Status post tubal ligation Visit Care Team Role Provider Type Emma Garrison MD Attending Provider Non-Staff Family Provider Primary Care Provider Referring Provider Specialty: Medical Address: [address] [place] [address], [phone] Email: Physical Therapy Initial Evaluation PT-OP-A Visit Information Start: 07/08/23 14:31 Freq: Status: Active Protocol: Document 07/08/23 14:32 NM (Rec: 07/08/23 16:20 NM [id number]) Out-Patient Physical Therapy Visit Information Visit Information Visit Type Initial Evaluation Visit Note KX after 19 visits Visit Start Time 14:32 Visit Stop Time 15:22 Visit Number 1 Evaluation Information Evaluation Date 07/08/23 Precautions Precautions Hx of cancer PT-OP-B Current Condition Start: 07/08/23 14:31 Freq: Status: Active Protocol: Document 07/08/23 14:32 NM (Rec: 07/08/23 16:20 NM [id number]) Current Condition History of Current Condition Onset Date 2020, worsening frequency Current Complaints pain, balance, strength History of Current Condition Pt presents with lower L flank pain. She reports that she has had it for years, but states it's growing worse. She feels as if the scissors were left in after her surgery . She is wanting a scan, but has to have PT first. Dr. Garrison referred her. She had stage IV B kidney cancer, removed both. The pain began after the surgeries but not before. Pain is near where her L kidney would be. The spleen and pancreatic tail were removed; she almost during the surgery. Xrays shows collapse at spine, which may be pinching nerve. Pain is along the L side of spine, finger point area. She falls 2-3x/year, denies having any falls around time of surgery. Falls are due to tripping over objects. Her most recent fall tripping over when her dog pulled the leash . Her back pain is worsening, now constant and keeps pt awake at night. States more severe now, thinking about pain all the time. Denies numbness or tingling. States the doctors recently found a lump in her breast, which is being assessed. Prior Treatments and Tests scanned every 6 months, next appt in July Per Xrays 03/2023 provided by pt from 05/09/23 visit with doctor: multilevel spondylosis most notably at L4-5 and L5- S1 Current Functional Impairments (Reported) Functional Limitations- ADL's reports no difficulties with ADLs Functional Limitations- Mobility/Gait car rides 10 minutes, sitting 10 minutes, prolonged standing 30 minutes Functional Limitations- Other wakes 2x/night from sleep to go to bathroom and due to pain PT-OP-C Subjective Start: 07/08/23 14:31 Freq: Status: Active Protocol: Document 07/08/23 14:32 NM (Rec: 07/08/23 16:20 NM [id number]) OP-PT Subjective Patient Comments Patient Comments see hx above for pt report Patient Questionnaires Oswestry Low Back Index Oswestry Score 17/50 OP-PT Pain Assessment Location back Pain Location Details Left sided near T12-L1, QL Intensity 7 Scale Used Numeric (0 - 10) Description Sharp Description- Other to lateral trunk, slightly medial Frequency Constant Variations/Patterns better in morning, worse throughout day Pain Aggravating Factors Position,ADL's,Activity, Standing,Sitting Other Pain Aggravating Factors sleeping (starts on back-most comfortable), car ride (10 minutes Pain Alleviating Factors Heat,Medication,Lying Supine, Massage Other Pain Alleviating Factors flexion, ppt; lidocaine patches Home Pain Medication Use Pain Medications Used oxycodone Home Pain Medication Frequency every other night PT-OP-E Functional Tests Start: 07/08/23 14:31 Freq: Status: Active Protocol: Document 07/08/23 14:32 NM (Rec: 07/08/23 16:20 NM [id number]) Functional Tests Five Times Sit to Stand Test Score 17.8 seconds Comments pain reproduced with return to sitting; 20 plinth Other Forward Trunk Flexion Test Name of Test measured finger to floor Score 0 Comment reports no reproduction in pain PT-OP-F Manual Assessment Start: 07/08/23 14:31 Freq: Status: Active Protocol: Document 07/08/23 14:32 NM (Rec: 07/08/23 16:20 NM [id number]) Manual Assessments Soft Tissue Assessment Soft Tissue Mobility Assessment Increased tone along L lumbar paraspinals Joint Mobility Assessment Joint Mobility Assessment Hypomobility of lumbar spine with P-A springing. Pain reproduced with gentle P-A springing along L transverse processes. Minimal pain with P -A springing of L SIJ PT-OP-G Mobility & Gait Start: 07/08/23 14:31 Freq: Status: Active Protocol: Document 07/08/23 14:32 NM (Rec: 07/08/23 16:20 NM [id number]) OP Gait Assessment Gait Gait Assistance Required: Independent Distance (Feet) 150 Gait Deviations General Gait Pattern Antalgic,Flexed Trunk,Lateral Trunk Lean Factors Limiting Gait Function Factors Limiting Gait Function Pain,Poor Balance PT-OP-H Neuro Start: 07/08/23 14:31 Freq: Status: Active Protocol: Document 07/08/23 14:32 NM (Rec: 07/08/23 16:20 NM [id number]) Sensation Evaluation Comments Summary Comments Will assess in next session. Did not formally assess due to time Deep Tendon Reflex & Clonus Assessment Deep Tendon Reflex Right Patellar Deep Tendon Reflex 1+ Diminished Left Patellar Deep Tendon Reflex 2+ Normal PT-OP-J Posture/Palpation/Skin Start: 07/08/23 14:31 Freq: Status: Active Protocol: Document 07/08/23 14:32 NM (Rec: 07/08/23 16:20 NM [id number]) Posture Evaluation Position Standing Head/C-Spine Posture Forward Head T-Spine Posture Increased Kyphosis Pelvis Posture Posterior Tilted Weight Distribution Balanced Knee Posture (L) Genu Valgus,(R) Genu Valgus Patellar Posture (L) Superior,(R) Superior Palpation Assessment Location thoracolumbar spine Palpation Findings Muscle Guarding Palpation Details No spasms, but increased muscle guarding along paraspinals, L>R. Tenderness along lateral to L lower thoracic and L upper lumbar spine, in a C position with focal tenderness at L T12-L1. Palpable knot on L side. Minimal tenderness of L SIJ/ PSIS. No tenderness along midline of spine with palpation PT-OP-K Range of Motion Start: 07/08/23 14:31 Freq: Status: Active Protocol: Document 07/08/23 14:32 NM (Rec: 07/08/23 16:20 NM [id number]) Lumbar Spine Range of Motion Lumbar Spine Active Percentage Flexion 100 Extension 75 Lateral Flexion Left 100 Lateral Flexion Right 100 ROM Limitations Soft Tissue Tightness Comments No pain reproduced with standing extension Hip Goniometric Range of Motion Hip Right Flexion w/Knee Flexed 110 Extension 10 Internal Rotation 40 External Rotation 30 Left Flexion w/Knee Flexed 110 Extension 10 Internal Rotation 30 External Rotation 30 PT-OP-L Special Tests Start: 07/08/23 14:31 Freq: Status: Active Protocol: Document 07/08/23 14:32 NM (Rec: 07/08/23 16:20 NM [id number]) Special Tests Lumbar Spine Special Tests Straight Leg Raise Test Results - Slump Test Results - Distraction Test Results + Comments reports slight decrease in symptoms Payan/Quadrant Test Results + Comments L only, no compression performed PT-OP-M Strength Start: 07/08/23 14:31 Freq: Status: Active Protocol: Document 07/08/23 14:32 NM (Rec: 07/08/23 16:20 NM [id number]) Trunk Strength Trunk Manual Muscle Testing Flexion 3 Fair Extension 3 Fair Rotation Left 4 Good Rotation Right 4 Good Lateral Flexion Left 4 Good Lateral Flexion Right 4 Good Comments Able to stabilize against resistance. Mild reproduction in L sided point-tenderness w/ resisted L rotation Hip Strength Hip Manual Muscle Testing Right Flexion (L2) 4 Good Extension (S1) 4 Good Abduction 4 Good Comments Low back pain reproduced on L side with hip extension Left Flexion (L2) 4 Good Extension (S1) 4 Good Abduction 4 Good Comments L hip pain with sidelying testing on greater trochanter. Low back pain reproduced with hip extension Knee Strength Knee Manual Muscle Testing Right Flexion (S2) 4+ Good+ Extension (L3) 4+ Good+ Left Flexion (S2) 4+ Good+ Extension (L3) 4+ Good+ Ankle/Foot Strength Ankle and Foot Manual Muscle Testing Right Dorsiflexion (L4) 3 Fair Plantarflexion (S1) 4 Good Comments Tested with heel/toe walking. Difficulty with heel walking, maintaining DF and balance Left Dorsiflexion (L4) 3 Fair Plantarflexion (S1) 4 Good Comments Tested with heel/toe walking. Difficulty with heel walking, maintaining DF and balance PT-OP-Q Treatments Start: 07/08/23 14:31 Freq: Status: Active Protocol: Document 07/08/23 14:32 NM (Rec: 07/08/23 16:20 NM [id number]) Therapeutic Exercises Supine Exercises lumbar distraction Equipment Used legs elevated over bolster Reps/Minutes 7 minutes Comments reports slight pain reduction with elevation Standing Exercises lumbar stretch Standing Exercise Name counter top stretch into lumbar flexion Equipment Used holding countertop Reps/Minutes 2x30 Comments reports pain reduction w/ stretching PT-OP-T Assessment and Plan Start: 07/08/23 14:31 Freq: Status: Active Protocol: Document 07/08/23 14:32 NM (Rec: 07/08/23 16:20 NM [id number]) Physical Therapy Assessment Rehab Potential Rehabilitation Potential Fair Evaluation Complexity Number of Personal Factors/Comorbidities 3 or More Number of Body Systems Impaired 1-2 Clinical Presentation at Evaluation Evolving Impairments Impairments Activity Tolerance,Balance, Functional Activities, Functional Mobility,Gait, Integument,Pain,Posture,ROM, Sensation,Soft Tissue Mobility ,Strength Other Concerns Barriers to Rehabilitation Pt is a chronic pain pt with a hx of a traumatic surgery and hx of cancer. She is wanting to only try PT for 6 weeks in order to get further imaging and is unwilling to try PT >1x /wk. She has had previous kidney removal surgery and believes that her current pain is possible related to scar tissue formation. Goals Five Impairment HEP Impairment not performing daily activty other than ADLs Short Term Goal (STG) Pt will report compliance with HEP at least 3x/wk in order to maximize progression with PT STG Duration 4 weeks Chief Underwriter Goal (LTG) Pt will report compliance with HEP at least 3x/wk in order to maintain progress made during PT LTG Duration 8 weeks Four Impairment balance Impairment reports falls 2-3x/yr Chief Underwriter Goal (LTG) Pt will score at least 19/24 on DGI in order to demonstrate improved balance during gait and decreased fall risk LTG Duration 8 weeks Three Impairment activity Impairment sitting x10 minutes Short Term Goal (STG) Pt will report that she is able to sit at leats 10 minutes without increase in baseline pain in order to demonstrate improved activity tolerance, pain management STG Duration 4 weeks Prison Goal (LTG) Pt will report that she is able to sit at least 15 minutes without increase in baseline pain in order to demonstrate improved activity tolerance, pain management LTG Duration 8 weeks Two Impairment strength Impairment 5x STS 17.8 seconds, 20 plinth, reports difficulty with rising from STS Short Term Goal (STG) Pt will be able to perform at least 8 sit to stands without compensation and with pain <7/ 10 in order to demonstrate increased BLE strength STG Duration 4 weeks Chief Underwriter Goal (LTG) Pt will be able to perform 5x STS in at least 12.5 seconds in order to meet age-related norms and demonstrate increased BLE strength LTG Duration 8 weeks One Impairment sleep Impairment waking 2x/night to go to bathroom Short Term Goal (STG) Pt will be educated on sleeping positions in order to improved quality and for pain reduction STG Duration 4 weeks Prison Goal (LTG) Pt will report that she is waking <2 times ea night due to back pain in order to demonstrate improved sleep quality and pain management LTG Duration 8 weeks Assessment Summary Assessment Pt is a 72 y.o. female presenting with chronic thoracolumbar pain on her L side. Pain is primarily focal on L side near lower thoracic and upper lumbar spine that she is able to pinpoint with her finger. She has had imaging performed, but has been referred to PT prior to additional imaging being performed. Pt has hx of kidney cancer and surgery; she is being assessed every 6 months for recurrence with her next appt in July. Pt has night pain and reports nagging symptoms, but has no other red flags. Currently, pt has limitations in lumbar extension ROM. She has difficulty with stabilizing her trunk against resistance. Pain is reproduced with palpation, extension ROM, prone positioning, resisted trunk testing. Pt also has local pain with 3D testing to the L without compression. Pt does not have any radiation into BLE. She has increased muscle tone and guarding along her L thoracolumbar paraspinals with a palpable/ tender knot lateral to the thoracolumbar junction. Pt also has a hx of falls due to tripping over objects, indicating a fall risk which will be addressed in future sessions. PT discussed exam findings and goals with pt. Initiated HEP with supine lumbar distraction and trunk flexion stretching in standing . Pt verbalizes mild reduction in pain symptoms. Physical Therapy Plan Frequency and Duration Frequency of Treatment 1x/Week Duration of treatment (weeks) 8 Plan of Care Start Date 07/08/23 Plan of Care End Date 09/05/23 Therapeutic Interventions Therapeutic Interventions Balance Training,Gait Training ,Home Exercise Program,Joint Mobilizations,Manual Therapy, Neuromuscular Re-education, Patient/Caregiver Education, Self-Care/Home Management, Sensory Integration,Soft Tissue Mobilization,Taping, Therapeutic Activities, Therapeutic Exercises Modalities Cold Pack/Ice Massage,Hot Packs Next Visit Focus/Plan Next Note Type Treatment Note Next Visit Plan Review HEP. Assess DGI next session and trunk/BLE sensation Education: diaphragmatic breathing, sleep positioning, Mindfulness Manual: STM to mid-low back, abdominals (along lateral trunk); spinal rotation ( thoracic open book vs thread needle, pelvic tilts w/ ball) marva stretch, quadruped hip strengthening, core bracing
--- NOTE | 2023-07-15 16:40 | PT.OTN ---
Current Diagnoses Other chronic pain (07/15/23) Low back pain, unspecified (07/15/23) Weakness (07/15/23) Physical Therapy Treatment Note PT-OP-A Visit Information Start: 07/08/23 14:31 Freq: Status: Active Protocol: Document 07/15/23 15:37 NBM (Rec: 07/15/23 16:40 NBM [id number]) Out-Patient Physical Therapy Visit Information Visit Information Visit Type Treatment Note Visit Note KX after 19 visits Visit Start Time 15:25 Visit Stop Time 16:10 Visit Number 2 Number of GLASS CURVATURE GAUGER Visits 1 Evaluation Information Evaluation Date 07/08/23 Precautions Precautions Hx of cancer PT-OP-B Current Condition Start: 07/08/23 14:31 Freq: Status: Active Protocol: Document 07/08/23 14:32 NM (Rec: 07/08/23 16:20 NM [id number]) Current Condition History of Current Condition Onset Date 2020, worsening frequency Current Complaints pain, balance, strength History of Current Condition Pt presents with lower L flank pain. She reports that she has had it for years, but states it's growing worse. She feels as if the scissors were left in after her surgery . She is wanting a scan, but has to have PT first. Dr. Garrison referred her. She had stage IV B kidney cancer, removed both. The pain began after the surgeries but not before. Pain is near where her L kidney would be. The spleen and pancreatic tail were removed; she almost during the surgery. Xrays shows collapse at spine, which may be pinching nerve. Pain is along the L side of spine, finger point area. She falls 2-3x/year, denies having any falls around time of surgery. Falls are due to tripping over objects. Her most recent fall tripping over when her dog pulled the leash . Her back pain is worsening, now constant and keeps pt awake at night. States more severe now, thinking about pain all the time. Denies numbness or tingling. States the doctors recently found a lump in her breast, which is being assessed. Prior Treatments and Tests scanned every 6 months, next appt in July Per Xrays 03/2023 provided by pt from 05/09/23 visit with doctor: multilevel spondylosis most notably at L4-5 and L5- S1 Current Functional Impairments (Reported) Functional Limitations- ADL's reports no difficulties with ADLs Functional Limitations- Mobility/Gait car rides 10 minutes, sitting 10 minutes, prolonged standing 30 minutes Functional Limitations- Other wakes 2x/night from sleep to go to bathroom and due to pain PT-OP-C Subjective Start: 07/08/23 14:31 Freq: Status: Active Protocol: Document 07/15/23 15:37 NBM (Rec: 07/15/23 16:40 NBM [id number]) OP-PT Subjective Patient Comments Patient Comments Denia reports she was very sore after initial assessment. She did the counter stretch and put her legs up on chair as instructed which helped. Her back pain is generally 5/ 10, plus she has one dime- sized spot that feels like it' s being poked with scissors. PT-OP-E Functional Tests Start: 07/08/23 14:31 Freq: Status: Active Protocol: Document 07/08/23 14:32 NM (Rec: 07/08/23 16:20 NM [id number]) Functional Tests Five Times Sit to Stand Test Score 17.8 seconds Comments pain reproduced with return to sitting; 20 plinth Other Forward Trunk Flexion Test Name of Test measured finger to floor Score 0 Comment reports no reproduction in pain PT-OP-F Manual Assessment Start: 07/08/23 14:31 Freq: Status: Active Protocol: Document 07/08/23 14:32 NM (Rec: 07/08/23 16:20 NM [id number]) Manual Assessments Soft Tissue Assessment Soft Tissue Mobility Assessment Increased tone along L lumbar paraspinals Joint Mobility Assessment Joint Mobility Assessment Hypomobility of lumbar spine with P-A springing. Pain reproduced with gentle P-A springing along L transverse processes. Minimal pain with P -A springing of L SIJ PT-OP-G Mobility & Gait Start: 07/08/23 14:31 Freq: Status: Active Protocol: Document 07/08/23 14:32 NM (Rec: 07/08/23 16:20 NM [id number]) OP Gait Assessment Gait Gait Assistance Required: Independent Distance (Feet) 150 Gait Deviations General Gait Pattern Antalgic,Flexed Trunk,Lateral Trunk Lean Factors Limiting Gait Function Factors Limiting Gait Function Pain,Poor Balance PT-OP-H Neuro Start: 07/08/23 14:31 Freq: Status: Active Protocol: Document 07/08/23 14:32 NM (Rec: 07/08/23 16:20 NM [id number]) Sensation Evaluation Comments Summary Comments Will assess in next session. Did not formally assess due to time Deep Tendon Reflex & Clonus Assessment Deep Tendon Reflex Right Patellar Deep Tendon Reflex 1+ Diminished Left Patellar Deep Tendon Reflex 2+ Normal PT-OP-J Posture/Palpation/Skin Start: 07/08/23 14:31 Freq: Status: Active Protocol: Document 07/08/23 14:32 NM (Rec: 07/08/23 16:20 NM [id number]) Posture Evaluation Position Standing Head/C-Spine Posture Forward Head T-Spine Posture Increased Kyphosis Pelvis Posture Posterior Tilted Weight Distribution Balanced Knee Posture (L) Genu Valgus,(R) Genu Valgus Patellar Posture (L) Superior,(R) Superior Palpation Assessment Location thoracolumbar spine Palpation Findings Muscle Guarding Palpation Details No spasms, but increased muscle guarding along paraspinals, L>R. Tenderness along lateral to L lower thoracic and L upper lumbar spine, in a C position with focal tenderness at L T12-L1. Palpable knot on L side. Minimal tenderness of L SIJ/ PSIS. No tenderness along midline of spine with palpation PT-OP-K Range of Motion Start: 07/08/23 14:31 Freq: Status: Active Protocol: Document 07/08/23 14:32 NM (Rec: 07/08/23 16:20 NM [id number]) Lumbar Spine Range of Motion Lumbar Spine Active Percentage Flexion 100 Extension 75 Lateral Flexion Left 100 Lateral Flexion Right 100 ROM Limitations Soft Tissue Tightness Comments No pain reproduced with standing extension Hip Goniometric Range of Motion Hip Right Flexion w/Knee Flexed 110 Extension 10 Internal Rotation 40 External Rotation 30 Left Flexion w/Knee Flexed 110 Extension 10 Internal Rotation 30 External Rotation 30 PT-OP-L Special Tests Start: 07/08/23 14:31 Freq: Status: Active Protocol: Document 07/08/23 14:32 NM (Rec: 07/08/23 16:20 NM [id number]) Special Tests Lumbar Spine Special Tests Straight Leg Raise Test Results - Slump Test Results - Distraction Test Results + Comments reports slight decrease in symptoms Payan/Quadrant Test Results + Comments L only, no compression performed PT-OP-M Strength Start: 07/08/23 14:31 Freq: Status: Active Protocol: Document 07/08/23 14:32 NM (Rec: 07/08/23 16:20 NM [id number]) Trunk Strength Trunk Manual Muscle Testing Flexion 3 Fair Extension 3 Fair Rotation Left 4 Good Rotation Right 4 Good Lateral Flexion Left 4 Good Lateral Flexion Right 4 Good Comments Able to stabilize against resistance. Mild reproduction in L sided point-tenderness w/ resisted L rotation Hip Strength Hip Manual Muscle Testing Right Flexion (L2) 4 Good Extension (S1) 4 Good Abduction 4 Good Comments Low back pain reproduced on L side with hip extension Left Flexion (L2) 4 Good Extension (S1) 4 Good Abduction 4 Good Comments L hip pain with sidelying testing on greater trochanter. Low back pain reproduced with hip extension Knee Strength Knee Manual Muscle Testing Right Flexion (S2) 4+ Good+ Extension (L3) 4+ Good+ Left Flexion (S2) 4+ Good+ Extension (L3) 4+ Good+ Ankle/Foot Strength Ankle and Foot Manual Muscle Testing Right Dorsiflexion (L4) 3 Fair Plantarflexion (S1) 4 Good Comments Tested with heel/toe walking. Difficulty with heel walking, maintaining DF and balance Left Dorsiflexion (L4) 3 Fair Plantarflexion (S1) 4 Good Comments Tested with heel/toe walking. Difficulty with heel walking, maintaining DF and balance PT-OP-Q Treatments Start: 07/08/23 14:31 Freq: Status: Active Protocol: Document 07/15/23 15:37 NBM (Rec: 07/15/23 16:40 NBM [id number]) Therapeutic Exercises Supine Exercises LTR Supine Exercise Name 1. w/ physioball 2. in hooklying Side bilateral Equipment Used 55cm orange physioball Reps/Minutes x10 ea Comments positive feedback response lumbar distraction Supine Exercise Name 1. legs elevated over 55cm physioball Equipment Used 55 cm orange physioball Reps/Minutes 5 minutes Comments it feels nice Standing Exercises lumbar stretch Standing Exercise Name counter top stretch into lumbar flexion Equipment Used holding handrail Reps/Minutes 2x30 Comments reports pain reduction w/ stretching Manual Therapy Treatment Soft Tissue Mobilization abdomen Body Location Scar tissue midline to L Mobilization Type Myofascial Release, Oscillations,Sustained Pressure Intensity/Depth superficial to moderate Body Position Sidelying Comments simultaneously with lumbar STM w/ pt R sidelying. lumbar Body Location joe paraspinals L>R, L QL Mobilization Type Rolling,Strumming,Other Intensity/Depth Superficial Body Position Sidelying Comments manual pin and stretch to QL 2 x30s Manual Traction Lumbar Details short axis w/ strap Body Position Hooklying Reps/Duration 2x90s Comments Pt tolerates without increase in pain but reports increase in L-sided lumbar pain immediatelh after. PT-OP-T Assessment and Plan Start: 07/08/23 14:31 Freq: Status: Active Protocol: Document 07/15/23 15:37 NBM (Rec: 07/15/23 16:40 NBM [id number]) Physical Therapy Assessment Goals Five Impairment HEP Impairment not performing daily activty other than ADLs Short Term Goal (STG) Pt will report compliance with HEP at least 3x/wk in order to maximize progression with PT STG Duration 4 weeks Skilled Nursing Goal (LTG) Pt will report compliance with HEP at least 3x/wk in order to maintain progress made during PT LTG Duration 8 weeks Four Impairment balance Impairment reports falls 2-3x/yr Skilled Nursing Goal (LTG) Pt will score at least 19/24 on DGI in order to demonstrate improved balance during gait and decreased fall risk LTG Duration 8 weeks Three Impairment activity Impairment sitting x10 minutes Short Term Goal (STG) Pt will report that she is able to sit at leats 10 minutes without increase in baseline pain in order to demonstrate improved activity tolerance, pain management STG Duration 4 weeks Skilled Nursing Goal (LTG) Pt will report that she is able to sit at least 15 minutes without increase in baseline pain in order to demonstrate improved activity tolerance, pain management LTG Duration 8 weeks Two Impairment strength Impairment 5x STS 17.8 seconds, 20 plinth, reports difficulty with rising from STS Short Term Goal (STG) Pt will be able to perform at least 8 sit to stands without compensation and with pain <7/ 10 in order to demonstrate increased BLE strength STG Duration 4 weeks Quill Skinner Goal (LTG) Pt will be able to perform 5x STS in at least 12.5 seconds in order to meet age-related norms and demonstrate increased BLE strength LTG Duration 8 weeks One Impairment sleep Impairment waking 2x/night to go to bathroom Short Term Goal (STG) Pt will be educated on sleeping positions in order to improved quality and for pain reduction STG Duration 4 weeks Skilled Nursing Goal (LTG) Pt will report that she is waking <2 times ea night due to back pain in order to demonstrate improved sleep quality and pain management LTG Duration 8 weeks Assessment Summary Assessment Denia presents with 5/10 low back pain which is unchanged end of session. She tolerates lumbar short-axis distraction but reports L-sided lumbar pain returns immediately after . STM performed simultaneously to L-sided abdomen and scar tissue and L lumbar region improves palpable tension and pt reports positive feedback response. Physical Therapy Plan Frequency and Duration Frequency of Treatment 1x/Week Duration of treatment (weeks) 8 Plan of Care Start Date 07/08/23 Plan of Care End Date 09/05/23 Therapeutic Interventions Therapeutic Interventions Balance Training,Gait Training ,Home Exercise Program,Joint Mobilizations,Manual Therapy, Neuromuscular Re-education, Patient/Caregiver Education, Self-Care/Home Management, Sensory Integration,Soft Tissue Mobilization,Taping, Therapeutic Activities, Therapeutic Exercises Modalities Cold Pack/Ice Massage,Hot Packs Next Visit Focus/Plan Next Note Type Treatment Note Next Visit Plan Review HEP. Assess DGI next session and trunk/BLE sensation Education: diaphragmatic breathing, sleep positioning, Mindfulness Manual: STM to mid-low back, abdominals (along lateral trunk); spinal rotation ( thoracic open book vs thread needle, pelvic tilts w/ ball) marva stretch, quadruped hip strengthening, core bracing
--- NOTE | 2023-07-22 15:53 | PT.OTN ---
Current Diagnoses Other chronic pain (07/22/23) Low back pain, unspecified (07/22/23) Weakness (07/22/23) Physical Therapy Treatment Note PT-OP-A Visit Information Start: 07/08/23 14:31 Freq: Status: Active Protocol: Document 07/22/23 13:47 NM (Rec: 07/22/23 14:31 NM [id number]) Out-Patient Physical Therapy Visit Information Visit Information Visit Type Treatment Note Visit Note KX after 19 visits Visit Start Time 13:48 Visit Stop Time 14:28 Visit Number 3 Evaluation Information Evaluation Date 07/08/23 Precautions Precautions Hx of cancer PT-OP-B Current Condition Start: 07/08/23 14:31 Freq: Status: Active Protocol: Document 07/08/23 14:32 NM (Rec: 07/08/23 16:20 NM [id number]) Current Condition History of Current Condition Onset Date 2020, worsening frequency Current Complaints pain, balance, strength History of Current Condition Pt presents with lower L flank pain. She reports that she has had it for years, but states it's growing worse. She feels as if the scissors were left in after her surgery . She is wanting a scan, but has to have PT first. Dr. Garrison referred her. She had stage IV B kidney cancer, removed both. The pain began after the surgeries but not before. Pain is near where her L kidney would be. The spleen and pancreatic tail were removed; she almost during the surgery. Xrays shows collapse at spine, which may be pinching nerve. Pain is along the L side of spine, finger point area. She falls 2-3x/year, denies having any falls around time of surgery. Falls are due to tripping over objects. Her most recent fall tripping over when her dog pulled the leash . Her back pain is worsening, now constant and keeps pt awake at night. States more severe now, thinking about pain all the time. Denies numbness or tingling. States the doctors recently found a lump in her breast, which is being assessed. Prior Treatments and Tests scanned every 6 months, next appt in July Per Xrays 03/2023 provided by pt from 05/09/23 visit with doctor: multilevel spondylosis most notably at L4-5 and L5- S1 Current Functional Impairments (Reported) Functional Limitations- ADL's reports no difficulties with ADLs Functional Limitations- Mobility/Gait car rides 10 minutes, sitting 10 minutes, prolonged standing 30 minutes Functional Limitations- Other wakes 2x/night from sleep to go to bathroom and due to pain PT-OP-C Subjective Start: 07/08/23 14:31 Freq: Status: Active Protocol: Document 07/22/23 13:47 NM (Rec: 07/22/23 14:31 NM [id number]) OP-PT Subjective Patient Comments Patient Comments She reports that she was sore for a few hours after last session. Like do's/dont's list . Reports 4/10 L sided pain. PT-OP-E Functional Tests Start: 07/08/23 14:31 Freq: Status: Active Protocol: Document 07/08/23 14:32 NM (Rec: 07/08/23 16:20 NM [id number]) Functional Tests Five Times Sit to Stand Test Score 17.8 seconds Comments pain reproduced with return to sitting; 20 plinth Other Forward Trunk Flexion Test Name of Test measured finger to floor Score 0 Comment reports no reproduction in pain PT-OP-F Manual Assessment Start: 07/08/23 14:31 Freq: Status: Active Protocol: Document 07/08/23 14:32 NM (Rec: 07/08/23 16:20 NM [id number]) Manual Assessments Soft Tissue Assessment Soft Tissue Mobility Assessment Increased tone along L lumbar paraspinals Joint Mobility Assessment Joint Mobility Assessment Hypomobility of lumbar spine with P-A springing. Pain reproduced with gentle P-A springing along L transverse processes. Minimal pain with P -A springing of L SIJ PT-OP-G Mobility & Gait Start: 07/08/23 14:31 Freq: Status: Active Protocol: Document 07/08/23 14:32 NM (Rec: 07/08/23 16:20 NM [id number]) OP Gait Assessment Gait Gait Assistance Required: Independent Distance (Feet) 150 Gait Deviations General Gait Pattern Antalgic,Flexed Trunk,Lateral Trunk Lean Factors Limiting Gait Function Factors Limiting Gait Function Pain,Poor Balance PT-OP-H Neuro Start: 07/08/23 14:31 Freq: Status: Active Protocol: Document 07/08/23 14:32 NM (Rec: 07/08/23 16:20 NM [id number]) Sensation Evaluation Comments Summary Comments Will assess in next session. Did not formally assess due to time Deep Tendon Reflex & Clonus Assessment Deep Tendon Reflex Right Patellar Deep Tendon Reflex 1+ Diminished Left Patellar Deep Tendon Reflex 2+ Normal PT-OP-J Posture/Palpation/Skin Start: 07/08/23 14:31 Freq: Status: Active Protocol: Document 07/08/23 14:32 NM (Rec: 07/08/23 16:20 NM [id number]) Posture Evaluation Position Standing Head/C-Spine Posture Forward Head T-Spine Posture Increased Kyphosis Pelvis Posture Posterior Tilted Weight Distribution Balanced Knee Posture (L) Genu Valgus,(R) Genu Valgus Patellar Posture (L) Superior,(R) Superior Palpation Assessment Location thoracolumbar spine Palpation Findings Muscle Guarding Palpation Details No spasms, but increased muscle guarding along paraspinals, L>R. Tenderness along lateral to L lower thoracic and L upper lumbar spine, in a C position with focal tenderness at L T12-L1. Palpable knot on L side. Minimal tenderness of L SIJ/ PSIS. No tenderness along midline of spine with palpation PT-OP-K Range of Motion Start: 07/08/23 14:31 Freq: Status: Active Protocol: Document 07/08/23 14:32 NM (Rec: 07/08/23 16:20 NM [id number]) Lumbar Spine Range of Motion Lumbar Spine Active Percentage Flexion 100 Extension 75 Lateral Flexion Left 100 Lateral Flexion Right 100 ROM Limitations Soft Tissue Tightness Comments No pain reproduced with standing extension Hip Goniometric Range of Motion Hip Right Flexion w/Knee Flexed 110 Extension 10 Internal Rotation 40 External Rotation 30 Left Flexion w/Knee Flexed 110 Extension 10 Internal Rotation 30 External Rotation 30 PT-OP-L Special Tests Start: 07/08/23 14:31 Freq: Status: Active Protocol: Document 07/08/23 14:32 NM (Rec: 07/08/23 16:20 NM [id number]) Special Tests Lumbar Spine Special Tests Straight Leg Raise Test Results - Slump Test Results - Distraction Test Results + Comments reports slight decrease in symptoms Payan/Quadrant Test Results + Comments L only, no compression performed PT-OP-M Strength Start: 07/08/23 14:31 Freq: Status: Active Protocol: Document 07/08/23 14:32 NM (Rec: 07/08/23 16:20 NM [id number]) Trunk Strength Trunk Manual Muscle Testing Flexion 3 Fair Extension 3 Fair Rotation Left 4 Good Rotation Right 4 Good Lateral Flexion Left 4 Good Lateral Flexion Right 4 Good Comments Able to stabilize against resistance. Mild reproduction in L sided point-tenderness w/ resisted L rotation Hip Strength Hip Manual Muscle Testing Right Flexion (L2) 4 Good Extension (S1) 4 Good Abduction 4 Good Comments Low back pain reproduced on L side with hip extension Left Flexion (L2) 4 Good Extension (S1) 4 Good Abduction 4 Good Comments L hip pain with sidelying testing on greater trochanter. Low back pain reproduced with hip extension Knee Strength Knee Manual Muscle Testing Right Flexion (S2) 4+ Good+ Extension (L3) 4+ Good+ Left Flexion (S2) 4+ Good+ Extension (L3) 4+ Good+ Ankle/Foot Strength Ankle and Foot Manual Muscle Testing Right Dorsiflexion (L4) 3 Fair Plantarflexion (S1) 4 Good Comments Tested with heel/toe walking. Difficulty with heel walking, maintaining DF and balance Left Dorsiflexion (L4) 3 Fair Plantarflexion (S1) 4 Good Comments Tested with heel/toe walking. Difficulty with heel walking, maintaining DF and balance PT-OP-Q Treatments Start: 07/08/23 14:31 Freq: Status: Active Protocol: Document 07/22/23 13:47 NM (Rec: 07/22/23 14:31 NM [id number]) Therapeutic Exercises Supine Exercises knees to chest Supine Exercise Name repeated motions Side bilateral Equipment Used small orange macedonian ball Reps/Minutes 1x10 Comments post manual tx Standing Exercises QL stretch Side bilateral Equipment Used wall with opp leg crossed behind Reps/Minutes 1x45 Comments mirroring PT for form, reports good stretch but no change in symptoms hip hike Side bilateral Equipment Used supported on wall Reps/Minutes 1x10 ea Comments pain free; difficulty w/ coordinating, tries to use hip abd lumbar stretch Standing Exercise Name 1. flexion, 2. lateral flexion Equipment Used large green macedonian ball Reps/Minutes 1. 60, 2. 1x10 ea direction with brief hold Comments reports pain reduction, but states feels in low back Other Exercises quadruped Other Exercise Name thread needle Side bilateral Reps/Minutes 1x5 Comments pain free but fatiguing; feels good Manual Therapy Treatment Soft Tissue Mobilization abdomen Body Location Scar tissue midline to L Mobilization Type Myofascial Release, Oscillations,Sustained Pressure Intensity/Depth Superficial Body Position Sidelying Comments Gentle circles and lifting along anterior scar, then simultaneous soft tissue mobilization with lumbar paraspinals. lumbar Body Location joe paraspinals L>R, L QL Mobilization Type Rolling,Strumming,Other Intensity/Depth Superficial Body Position Sidelying Comments Gentle soft tissue mobilization of lumbar paraspinals and QL. Tender over QL and T12 to L2 on L side. Minimal symptom reduction with soft tissue mobilization Addition of gentle sidelying gapping for lengthening of L paraspinals/QL with hand positioning at pelvis and lower ribs. Good feedback for gapping Manual Traction Lumbar Details legs elevated on small orange macedonian ball Body Position Hooklying Reps/Duration 2x60 Comments Tolerates without increase in pain. Reports no change in symptoms. Self-Care/Home Management Treatment Education Patient Education Home Exercise Program Other Education Reissued do's and dont's list for body mechanics at pt request. HEP: thread needle, walking program PT-OP-T Assessment and Plan Start: 07/08/23 14:31 Freq: Status: Active Protocol: Document 07/22/23 13:47 NM (Rec: 07/22/23 14:31 NM [id number]) Physical Therapy Assessment Goals Five Impairment HEP Impairment not performing daily activty other than ADLs Short Term Goal (STG) Pt will report compliance with HEP at least 3x/wk in order to maximize progression with PT STG Duration 4 weeks Fdc Goal (LTG) Pt will report compliance with HEP at least 3x/wk in order to maintain progress made during PT LTG Duration 8 weeks Four Impairment balance Impairment reports falls 2-3x/yr Fdc Goal (LTG) Pt will score at least 19/24 on DGI in order to demonstrate improved balance during gait and decreased fall risk LTG Duration 8 weeks Three Impairment activity Impairment sitting x10 minutes Short Term Goal (STG) Pt will report that she is able to sit at leats 10 minutes without increase in baseline pain in order to demonstrate improved activity tolerance, pain management STG Duration 4 weeks Fdc Goal (LTG) Pt will report that she is able to sit at least 15 minutes without increase in baseline pain in order to demonstrate improved activity tolerance, pain management LTG Duration 8 weeks Two Impairment strength Impairment 5x STS 17.8 seconds, 20 plinth, reports difficulty with rising from STS Short Term Goal (STG) Pt will be able to perform at least 8 sit to stands without compensation and with pain <7/ 10 in order to demonstrate increased BLE strength STG Duration 4 weeks Supervisor Housecleaner Goal (LTG) Pt will be able to perform 5x STS in at least 12.5 seconds in order to meet age-related norms and demonstrate increased BLE strength LTG Duration 8 weeks One Impairment sleep Impairment waking 2x/night to go to bathroom Short Term Goal (STG) Pt will be educated on sleeping positions in order to improved quality and for pain reduction STG Duration 4 weeks Supervisor Housecleaner Goal (LTG) Pt will report that she is waking <2 times ea night due to back pain in order to demonstrate improved sleep quality and pain management LTG Duration 8 weeks Assessment Summary Assessment Pt reports no change in back pain at end of session, but reports that she does feel looser in her back. Initiated quadruped thoracic rotation. Pt continues to respond best to manual treatment, especially soft tissue mobilization to anterior scar. Pain is primarily pinpoint location along lateral paraspinals, unchanged with treatment. PT performed sidelying elongation of thoracolumbar paraspinals with good feedback from pt. Followed manual treatment with QL stretching and strengthening, in addition to lumbar flexibility. Pt unable to perform in sitting. Educated on walking program to decrease overall inflammation , improve cardiovascular health; added to HEP. She has a follow up with oncology this week, continues to want MRI. Pt would benefit from skilled PT for symptom reduction, core /hip strengthening, and flexibility in order to improve activity tolerance and QOL. Physical Therapy Plan Frequency and Duration Frequency of Treatment 1x/Week Duration of treatment (weeks) 8 Plan of Care Start Date 07/08/23 Plan of Care End Date 09/05/23 Therapeutic Interventions Therapeutic Interventions Balance Training,Gait Training ,Home Exercise Program,Joint Mobilizations,Manual Therapy, Neuromuscular Re-education, Patient/Caregiver Education, Self-Care/Home Management, Sensory Integration,Soft Tissue Mobilization,Taping, Therapeutic Activities, Therapeutic Exercises Modalities Cold Pack/Ice Massage,Hot Packs Next Visit Focus/Plan Next Note Type Treatment Note Next Visit Plan Review spinal mobility if tolerated. Initiate supine core (trial flexion). Trial sidelying strengthening (s/l abd vs side steps), macedonian ball pelvic mobility in future sessions. Train hip hinge Education: diaphragmatic breathing, sleep positioning, Mindfulness Manual: STM to mid-low back, abdominals (along lateral trunk); spinal rotation ( thoracic open book vs thread needle, pelvic tilts w/ ball) marva lamine, quadruped hip strengthening, core bracing DGI
--- NOTE | 2023-07-29 16:30 | PT.OTN ---
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 She reports that she has had it for years, but states it's growing worse. She feels as if the scissors were left in after her surgery . She is wanting a scan, but has to have PT first. Dr. Garrison referred her. She had stage IV B kidney cancer, removed both. The pain began after the surgeries but not before. Pain is near where her L kidney would be. The spleen and pancreatic tail were removed; she almost during the surgery. Xrays shows collapse at spine, which may be pinching nerve. Pain is along the L side of spine, finger point area. She falls 2-3x/year, denies having any falls around time of surgery. Falls are due to tripping over objects. Her most recent fall tripping over when her dog pulled the leash . Her back pain is worsening, now constant and keeps pt awake at night. States more severe now, thinking about pain all the time. Denies numbness or tingling. States the doctors recently found a lump in her breast, which is being assessed. Prior Treatments and Tests scanned every 6 months, next appt in July Per Xrays 03/2023 provided by pt from 05/09/23 visit with doctor: multilevel spondylosis most notably at L4-5 and L5- S1 Current Functional Impairments (Reported) Functional Limitations- ADL's reports no difficulties with ADLs Functional Limitations- Mobility/Gait car rides 10 minutes, sitting 10 minutes, prolonged standing 30 minutes Functional Limitations- Other wakes 2x/night from sleep to go to bathroom and due to pain PT-OP-C Subjective Start: 07/08/23 14:31 Freq: Status: Active Protocol: Document 07/29/23 13:53 NBM (Rec: 07/29/23 14:20 NBM [id number]) OP-PT Subjective Patient Comments Patient Comments Denia reports she's not hurting today so that's a good thing. The massage seems to help. It's an unusual day for me not to be hurting, and I don't know what I've done differently. I think I'm in a good mood because I got all my scans done and I'm cancer- free. She's been walking more , 3-4 times between last session and today. Thread the needle didn't feel so good but moving the legs on the ball feels better. PT-OP-E Functional Tests Start: 07/08/23 14:31 Freq: Status: Active Protocol: Document 07/08/23 14:32 NM (Rec: 07/08/23 16:20 NM [id number]) Functional Tests Five Times Sit to Stand Test Score 17.8 seconds Comments pain reproduced with return to sitting; 20 plinth Other Forward Trunk Flexion Test Name of Test measured finger to floor Score 0 Comment reports no reproduction in pain PT-OP-F Manual Assessment Start: 07/08/23 14:31 Freq: Status: Active Protocol: Document 07/08/23 14:32 NM (Rec: 07/08/23 16:20 NM [id number]) Manual Assessments Soft Tissue Assessment Soft Tissue Mobility Assessment Increased tone along L lumbar paraspinals Joint Mobility Assessment Joint Mobility Assessment Hypomobility of lumbar spine with P-A springing. Pain reproduced with gentle P-A springing along L transverse processes. Minimal pain with P -A springing of L SIJ PT-OP-G Mobility & Gait Start: 07/08/23 14:31 Freq: Status: Active Protocol: Document 07/08/23 14:32 NM (Rec: 07/08/23 16:20 NM [id number]) OP Gait Assessment Gait Gait Assistance Required: Independent Distance (Feet) 150 Gait Deviations General Gait Pattern Antalgic,Flexed Trunk,Lateral Trunk Lean Factors Limiting Gait Function Factors Limiting Gait Function Pain,Poor Balance PT-OP-H Neuro Start: 07/08/23 14:31 Freq: Status: Active Protocol: Document 07/08/23 14:32 NM (Rec: 07/08/23 16:20 NM [id number]) Sensation Evaluation Comments Summary Comments Will assess in next session. Did not formally assess due to time Deep Tendon Reflex & Clonus Assessment Deep Tendon Reflex Right Patellar Deep Tendon Reflex 1+ Diminished Left Patellar Deep Tendon Reflex 2+ Normal PT-OP-J Posture/Palpation/Skin Start: 07/08/23 14:31 Freq: Status: Active Protocol: Document 07/08/23 14:32 NM (Rec: 07/08/23 16:20 NM [id number]) Posture Evaluation Position Standing Head/C-Spine Posture Forward Head T-Spine Posture Increased Kyphosis Pelvis Posture Posterior Tilted Weight Distribution Balanced Knee Posture (L) Genu Valgus,(R) Genu Valgus Patellar Posture (L) Superior,(R) Superior Palpation Assessment Location thoracolumbar spine Palpation Findings Muscle Guarding Palpation Details No spasms, but increased muscle guarding along paraspinals, L>R. Tenderness along lateral to L lower thoracic and L upper lumbar spine, in a C position with focal tenderness at L T12-L1. Palpable knot on L side. Minimal tenderness of L SIJ/ PSIS. No tenderness along midline of spine with palpation PT-OP-K Range of Motion Start: 07/08/23 14:31 Freq: Status: Active Protocol: Document 07/08/23 14:32 NM (Rec: 07/08/23 16:20 NM [id number]) Lumbar Spine Range of Motion Lumbar Spine Active Percentage Flexion 100 Extension 75 Lateral Flexion Left 100 Lateral Flexion Right 100 ROM Limitations Soft Tissue Tightness Comments No pain reproduced with standing extension Hip Goniometric Range of Motion Hip Right Flexion w/Knee Flexed 110 Extension 10 Internal Rotation 40 External Rotation 30 Left Flexion w/Knee Flexed 110 Extension 10 Internal Rotation 30 External Rotation 30 PT-OP-L Special Tests Start: 07/08/23 14:31 Freq: Status: Active Protocol: Document 07/08/23 14:32 NM (Rec: 07/08/23 16:20 NM [id number]) Special Tests Lumbar Spine Special Tests Straight Leg Raise Test Results - Slump Test Results - Distraction Test Results + Comments reports slight decrease in symptoms Payan/Quadrant Test Results + Comments L only, no compression performed PT-OP-M Strength Start: 07/08/23 14:31 Freq: Status: Active Protocol: Document 07/08/23 14:32 NM (Rec: 07/08/23 16:20 NM [id number]) Trunk Strength Trunk Manual Muscle Testing Flexion 3 Fair Extension 3 Fair Rotation Left 4 Good Rotation Right 4 Good Lateral Flexion Left 4 Good Lateral Flexion Right 4 Good Comments Able to stabilize against resistance. Mild reproduction in L sided point-tenderness w/ resisted L rotation Hip Strength Hip Manual Muscle Testing Right Flexion (L2) 4 Good Extension (S1) 4 Good Abduction 4 Good Comments Low back pain reproduced on L side with hip extension Left Flexion (L2) 4 Good Extension (S1) 4 Good Abduction 4 Good Comments L hip pain with sidelying testing on greater trochanter. Low back pain reproduced with hip extension Knee Strength Knee Manual Muscle Testing Right Flexion (S2) 4+ Good+ Extension (L3) 4+ Good+ Left Flexion (S2) 4+ Good+ Extension (L3) 4+ Good+ Ankle/Foot Strength Ankle and Foot Manual Muscle Testing Right Dorsiflexion (L4) 3 Fair Plantarflexion (S1) 4 Good Comments Tested with heel/toe walking. Difficulty with heel walking, maintaining DF and balance Left Dorsiflexion (L4) 3 Fair Plantarflexion (S1) 4 Good Comments Tested with heel/toe walking. Difficulty with heel walking, maintaining DF and balance PT-OP-Q Treatments Start: 07/08/23 14:31 Freq: Status: Active Protocol: Document 07/29/23 13:53 NB (Rec: 07/29/23 14:20 NB [id number]) Gym Equipment Therapeutic Ball 65cm Exercise Details 1. Pelvic tilts a/p, m/l 2. CW /CCW 3. Mini march>alt heel raises Ball Size/Color 65cm green Body Position Sitting Reps/Duration 8 min total Comments Cues for breathholding and breathwork, tall sitting posture. Therapeutic Exercises Supine Exercises LTR Supine Exercise Name 1. w/ physioball 2. in hooklying Side bilateral Equipment Used 55cm orange physioball Reps/Minutes x10 ea Comments positive feedback response lumbar distraction Supine Exercise Name 1. legs elevated over 55cm physioball Equipment Used 55 cm orange physioball Reps/Minutes 5 minutes Comments it feels nice Standing Exercises QL stretch Side bilateral Equipment Used wall with opp leg crossed behind Reps/Minutes 1x45 Comments mirroring PT for form, reports good stretch hip hike Side bilateral Equipment Used supported on wall Reps/Minutes 1x10 ea Comments pain free; difficulty w/ coordinating, tries to use hip abd lumbar stretch Standing Exercise Name 1. flexion, 2. lateral flexion Resistance seated Equipment Used large green palauan ball Reps/Minutes 1. 60, 2. 1x10 ea direction with brief hold Comments reports pain reduction, but states feels in low back Manual Therapy Treatment Soft Tissue Mobilization abdomen Body Location Scar tissue midline to L Mobilization Type Myofascial Release, Oscillations,Sustained Pressure Intensity/Depth Superficial Body Position Sidelying Comments Gentle circles and lifting along anterior scar, then simultaneous soft tissue mobilization with lumbar paraspinals. lumbar Body Location joe paraspinals L>R, L QL Mobilization Type Rolling,Strumming,Other Intensity/Depth Superficial Body Position Sidelying Comments Gentle soft tissue mobilization of lumbar paraspinals and QL w/ gentle focus on dime-size area of pinpoint tenderness. Manual stretch to QL 3x30s w/ pos feedback response. PT-OP-T Assessment and Plan Start: 07/08/23 14:31 Freq: Status: Active Protocol: Document 07/29/23 13:53 [facility] (Rec: 07/29/23 14:20 [facility] [id number]) Physical Therapy Assessment Goals Five Impairment HEP Impairment not performing daily activty other than ADLs Short Term Goal (STG) Pt will report compliance with HEP at least 3x/wk in order to maximize progression with PT STG Duration 4 weeks Senior Living Goal (LTG) Pt will report compliance with HEP at least 3x/wk in order to maintain progress made during PT LTG Duration 8 weeks Four Impairment balance Impairment reports falls 2-3x/yr [employer] Goal (LTG) Pt will score at least 19/24 on DGI in order to demonstrate improved balance during gait and decreased fall risk LTG Duration 8 weeks Three Impairment activity Impairment sitting x10 minutes Short Term Goal (STG) Pt will report that she is able to sit at leats 10 minutes without increase in baseline pain in order to demonstrate improved activity tolerance, pain management STG Duration 4 weeks Senior Living Goal (LTG) Pt will report that she is able to sit at least 15 minutes without increase in baseline pain in order to demonstrate improved activity tolerance, pain management LTG Duration 8 weeks Two Impairment strength Impairment 5x STS 17.8 seconds, 20 plinth, reports difficulty with rising from STS Short Term Goal (STG) Pt will be able to perform at least 8 sit to stands without compensation and with pain <7/ 10 in order to demonstrate increased BLE strength STG Duration 4 weeks Senior Living Goal (LTG) Pt will be able to perform 5x STS in at least 12.5 seconds in order to meet age-related norms and demonstrate increased BLE strength LTG Duration 8 weeks One Impairment sleep Impairment waking 2x/night to go to bathroom Short Term Goal (STG) Pt will be educated on sleeping positions in order to improved quality and for pain reduction STG Duration 4 weeks [employer] Goal (LTG) Pt will report that she is waking <2 times ea night due to back pain in order to demonstrate improved sleep quality and pain management LTG Duration 8 weeks Assessment Summary Assessment Denia presents w/ no pain today and is not sure why. Treatment focus on low back strengthening and stretching, initiating core series on physioball, and manual therapy . She requires cues for breathholding w/ TrA activation, breathwork kand tall sitting posture. Mini march is challenging and modified to alternating heel raises. End of session pt's pain increases from no pain to 2/10 focalized to consistent dime-size area in lumbar L region. Physical Therapy Plan Frequency and Duration Frequency of Treatment 1x/Week Duration of treatment (weeks) 8 Plan of Care Start Date 07/08/23 Plan of Care End Date 09/05/23 Therapeutic Interventions Therapeutic Interventions Balance Training,Gait Training ,Home Exercise Program,Joint Mobilizations,Manual Therapy, Neuromuscular Re-education, Patient/Caregiver Education, Self-Care/Home Management, Sensory Integration,Soft Tissue Mobilization,Taping, Therapeutic Activities, Therapeutic Exercises Modalities Cold Pack/Ice Massage,Hot Packs Next Visit Focus/Plan Next Note Type Treatment Note Next Visit Plan Review spinal mobility if tolerated. Initiate supine core (trial flexion). Trial sidelying strengthening (s/l abd vs side steps), palauan ball pelvic mobility in future sessions. Train hip hinge Education: diaphragmatic breathing, sleep positioning, Mindfulness Manual: STM to mid-low back, abdominals (along lateral trunk); spinal rotation ( thoracic open book vs thread needle, pelvic tilts w/ ball) marva stretch, quadruped hip strengthening, core bracing DGI
--- NOTE | 2023-08-05 16:08 | PT.OTN ---
Current Diagnoses Other chronic pain (08/05/23) Low back pain, unspecified (08/05/23) Weakness (08/05/23) Physical Therapy Treatment Note PT-OP-A Visit Information Start: 07/08/23 14:31 Freq: Status: Active Protocol: Document 08/05/23 14:41 NBM (Rec: 08/05/23 16:07 NBM [id number]) Out-Patient Physical Therapy Visit Information Visit Information Visit Type Treatment Note Visit Note Possible d/c next visit. KX after 19 visits Visit Start Time 14:41 Visit Stop Time 15:20 Visit Number 5 Number of ADMISSIONS DIRECTOR Visits 2 PT-OP-B Current Condition Start: 07/08/23 14:31 Freq: Status: Active Protocol: Document 07/08/23 14:32 NM (Rec: 07/08/23 16:20 NM [id number]) Current Condition History of Current Condition Onset Date 2020, worsening frequency Current Complaints pain, balance, strength History of Current Condition Pt presents with lower L flank pain. She reports that she has had it for years, but states it's growing worse. She feels as if the scissors were left in after her surgery . She is wanting a scan, but has to have PT first. Dr. Garrison referred her. She had stage IV B kidney cancer, removed both. The pain began after the surgeries but not before. Pain is near where her L kidney would be. The spleen and pancreatic tail were removed; she almost during the surgery. Xrays shows collapse at spine, which may be pinching nerve. Pain is along the L side of spine, finger point area. She falls 2-3x/year, denies having any falls around time of surgery. Falls are due to tripping over objects. Her most recent fall tripping over when her dog pulled the leash . Her back pain is worsening, now constant and keeps pt awake at night. States more severe now, thinking about pain all the time. Denies numbness or tingling. States the doctors recently found a lump in her breast, which is being assessed. Prior Treatments and Tests scanned every 6 months, next appt in July Per Xrays 03/2023 provided by pt from 05/09/23 visit with doctor: multilevel spondylosis most notably at L4-5 and L5- S1 Current Functional Impairments (Reported) Functional Limitations- ADL's reports no difficulties with ADLs Functional Limitations- Mobility/Gait car rides 10 minutes, sitting 10 minutes, prolonged standing 30 minutes Functional Limitations- Other wakes 2x/night from sleep to go to bathroom and due to pain PT-OP-C Subjective Start: 07/08/23 14:31 Freq: Status: Active Protocol: Document 08/05/23 14:41 NBM (Rec: 08/05/23 16:07 NBM [id number]) OP-PT Subjective Patient Comments Patient Comments Denia reports she now knows what's wrong with her. Her oncologist says her issue is postsurgical scar tissue that is seen on CT posterior to the left kidney. She also has degenerative disc disease in the L4-L5 area but that is lower than the location of the pain. She states the scar tissue is a C shape just as she's described it. She's going to [place] next week and then will be back the Friday before her 6th PT appt. They 're going to proceed with her shot and she's waiting for call from pain specialist to schedule. She's been doing a lot of walking this week and thinks that's triggered her hip arthritis pain on both sides. When she receives soft tissue work in PT sometimes even when it feels good during session it's painful later so she's uncomfortable with having the scar tissue pressed on being that close to the little bit of kidney she has left. PT-OP-E Functional Tests Start: 07/08/23 14:31 Freq: Status: Active Protocol: Document 07/08/23 14:32 NM (Rec: 07/08/23 16:20 NM [id number]) Functional Tests Five Times Sit to Stand Test Score 17.8 seconds Comments pain reproduced with return to sitting; 20 plinth Other Forward Trunk Flexion Test Name of Test measured finger to floor Score 0 Comment reports no reproduction in pain PT-OP-F Manual Assessment Start: 07/08/23 14:31 Freq: Status: Active Protocol: Document 07/08/23 14:32 NM (Rec: 07/08/23 16:20 NM [id number]) Manual Assessments Soft Tissue Assessment Soft Tissue Mobility Assessment Increased tone along L lumbar paraspinals Joint Mobility Assessment Joint Mobility Assessment Hypomobility of lumbar spine with P-A springing. Pain reproduced with gentle P-A springing along L transverse processes. Minimal pain with P -A springing of L SIJ PT-OP-G Mobility & Gait Start: 07/08/23 14:31 Freq: Status: Active Protocol: Document 07/08/23 14:32 NM (Rec: 07/08/23 16:20 NM [id number]) OP Gait Assessment Gait Gait Assistance Required: Independent Distance (Feet) 150 Gait Deviations General Gait Pattern Antalgic,Flexed Trunk,Lateral Trunk Lean Factors Limiting Gait Function Factors Limiting Gait Function Pain,Poor Balance PT-OP-H Neuro Start: 07/08/23 14:31 Freq: Status: Active Protocol: Document 07/08/23 14:32 NM (Rec: 07/08/23 16:20 NM [id number]) Sensation Evaluation Comments Summary Comments Will assess in next session. Did not formally assess due to time Deep Tendon Reflex & Clonus Assessment Deep Tendon Reflex Right Patellar Deep Tendon Reflex 1+ Diminished Left Patellar Deep Tendon Reflex 2+ Normal PT-OP-J Posture/Palpation/Skin Start: 07/08/23 14:31 Freq: Status: Active Protocol: Document 07/08/23 14:32 NM (Rec: 07/08/23 16:20 NM [id number]) Posture Evaluation Position Standing Head/C-Spine Posture Forward Head T-Spine Posture Increased Kyphosis Pelvis Posture Posterior Tilted Weight Distribution Balanced Knee Posture (L) Genu Valgus,(R) Genu Valgus Patellar Posture (L) Superior,(R) Superior Palpation Assessment Location thoracolumbar spine Palpation Findings Muscle Guarding Palpation Details No spasms, but increased muscle guarding along paraspinals, L>R. Tenderness along lateral to L lower thoracic and L upper lumbar spine, in a C position with focal tenderness at L T12-L1. Palpable knot on L side. Minimal tenderness of L SIJ/ PSIS. No tenderness along midline of spine with palpation PT-OP-K Range of Motion Start: 07/08/23 14:31 Freq: Status: Active Protocol: Document 07/08/23 14:32 NM (Rec: 07/08/23 16:20 NM [id number]) Lumbar Spine Range of Motion Lumbar Spine Active Percentage Flexion 100 Extension 75 Lateral Flexion Left 100 Lateral Flexion Right 100 ROM Limitations Soft Tissue Tightness Comments No pain reproduced with standing extension Hip Goniometric Range of Motion Hip Right Flexion w/Knee Flexed 110 Extension 10 Internal Rotation 40 External Rotation 30 Left Flexion w/Knee Flexed 110 Extension 10 Internal Rotation 30 External Rotation 30 PT-OP-L Special Tests Start: 07/08/23 14:31 Freq: Status: Active Protocol: Document 07/08/23 14:32 NM (Rec: 07/08/23 16:20 NM [id number]) Special Tests Lumbar Spine Special Tests Straight Leg Raise Test Results - Slump Test Results - Distraction Test Results + Comments reports slight decrease in symptoms Payan/Quadrant Test Results + Comments L only, no compression performed PT-OP-M Strength Start: 07/08/23 14:31 Freq: Status: Active Protocol: Document 07/08/23 14:32 NM (Rec: 07/08/23 16:20 NM [id number]) Trunk Strength Trunk Manual Muscle Testing Flexion 3 Fair Extension 3 Fair Rotation Left 4 Good Rotation Right 4 Good Lateral Flexion Left 4 Good Lateral Flexion Right 4 Good Comments Able to stabilize against resistance. Mild reproduction in L sided point-tenderness w/ resisted L rotation Hip Strength Hip Manual Muscle Testing Right Flexion (L2) 4 Good Extension (S1) 4 Good Abduction 4 Good Comments Low back pain reproduced on L side with hip extension Left Flexion (L2) 4 Good Extension (S1) 4 Good Abduction 4 Good Comments L hip pain with sidelying testing on greater trochanter. Low back pain reproduced with hip extension Knee Strength Knee Manual Muscle Testing Right Flexion (S2) 4+ Good+ Extension (L3) 4+ Good+ Left Flexion (S2) 4+ Good+ Extension (L3) 4+ Good+ Ankle/Foot Strength Ankle and Foot Manual Muscle Testing Right Dorsiflexion (L4) 3 Fair Plantarflexion (S1) 4 Good Comments Tested with heel/toe walking. Difficulty with heel walking, maintaining DF and balance Left Dorsiflexion (L4) 3 Fair Plantarflexion (S1) 4 Good Comments Tested with heel/toe walking. Difficulty with heel walking, maintaining DF and balance PT-OP-Q Treatments Start: 07/08/23 14:31 Freq: Status: Active Protocol: Document 08/05/23 14:41 NBM (Rec: 08/05/23 16:07 NBM [id number]) Therapeutic Exercises Supine Exercises knees to chest Supine Exercise Name repeated motions Side bilateral Equipment Used small orange burkinan ball Reps/Minutes 1x10 Comments post manual tx LTR Supine Exercise Name w/ physioball Side bilateral Equipment Used 55cm orange physioball Reps/Minutes x10 ea Comments positive feedback response Manual Therapy Treatment Soft Tissue Mobilization lumbar Body Location L paraspinals, L QL Mobilization Type Instrument Assisted,Rolling, Strumming,Other Intensity/Depth Superficial Body Position Sidelying Comments Gentle cupping (smallest and next smallest) of area of C- shaped scar tissue restriction in lumbar region posterior to L kidney and along paraspinals. Manual stretch to L QL 2 x30s w/ positive feedback response. Self-Care/Home Management Treatment Education Patient Education Pain Management Other Education Edu to pt re: gentle cupping to address scar tissue adhesion for informed consent w/ demonstration to pt's forearm. PT-OP-T Assessment and Plan Start: 07/08/23 14:31 Freq: Status: Active Protocol: Document 08/05/23 14:41 NB (Rec: 08/05/23 16:07 [facility] [id number]) Physical Therapy Assessment Goals Five Impairment HEP Impairment not performing daily activty other than ADLs Short Term Goal (STG) Pt will report compliance with HEP at least 3x/wk in order to maximize progression with PT STG Duration 4 weeks Frame Polisher Goal (LTG) Pt will report compliance with HEP at least 3x/wk in order to maintain progress made during PT LTG Duration 8 weeks Four Impairment balance Impairment reports falls 2-3x/yr Frame Polisher Goal (LTG) Pt will score at least 19/24 on DGI in order to demonstrate improved balance during gait and decreased fall risk LTG Duration 8 weeks Three Impairment activity Impairment sitting x10 minutes Short Term Goal (STG) Pt will report that she is able to sit at leats 10 minutes without increase in baseline pain in order to demonstrate improved activity tolerance, pain management STG Duration 4 weeks Frame Polisher Goal (LTG) Pt will report that she is able to sit at least 15 minutes without increase in baseline pain in order to demonstrate improved activity tolerance, pain management LTG Duration 8 weeks Two Impairment strength Impairment 5x STS 17.8 seconds, 20 plinth, reports difficulty with rising from STS Short Term Goal (STG) Pt will be able to perform at least 8 sit to stands without compensation and with pain <7/ 10 in order to demonstrate increased BLE strength STG Duration 4 weeks Frame Polisher Goal (LTG) Pt will be able to perform 5x STS in at least 12.5 seconds in order to meet age-related norms and demonstrate increased BLE strength LTG Duration 8 weeks One Impairment sleep Impairment waking 2x/night to go to bathroom Short Term Goal (STG) Pt will be educated on sleeping positions in order to improved quality and for pain reduction STG Duration 4 weeks [facility] Goal (LTG) Pt will report that she is waking <2 times ea night due to back pain in order to demonstrate improved sleep quality and pain management LTG Duration 8 weeks Assessment Summary Assessment Possible d/c next visit. Denia presents w/ oncology 07/30/[address] scan reveals post-surgical scarring consistent w/ pt's pain. (sent for scanning). Treatment focus on edu manual therapy to address surgical adhesions w/ use of gentle cupping followed by stretching and LE mobility. Pt tolerates session without increase in pain and provides positive feedback response to cupping w / smallest diameter cup. She is instructed to assess response to cupping throughout next 24 hours and report back to evaluating PT next session . Physical Therapy Plan Frequency and Duration Frequency of Treatment 1x/Week Duration of treatment (weeks) 8 Plan of Care Start Date 07/08/23 Plan of Care End Date 09/05/23 Therapeutic Interventions Therapeutic Interventions Balance Training,Gait Training ,Home Exercise Program,Joint Mobilizations,Manual Therapy, Neuromuscular Re-education, Patient/Caregiver Education, Self-Care/Home Management, Sensory Integration,Soft Tissue Mobilization,Taping, Therapeutic Activities, Therapeutic Exercises Modalities Cold Pack/Ice Massage,Hot Packs Next Visit Focus/Plan Next Note Type Treatment Note Next Visit Plan Possible d/c next visit. POC: Review spinal mobility if tolerated. Initiate supine core (trial flexion). Trial sidelying strengthening (s/l abd vs side steps), burkinan ball pelvic mobility in future sessions. Train hip hinge Education: diaphragmatic breathing, sleep positioning, Mindfulness Manual: STM to mid-low back, abdominals (along lateral trunk); spinal rotation ( thoracic open book vs thread needle, pelvic tilts w/ ball) marva stretch, quadruped hip strengthening, core bracing DGI
--- NOTE | 2023-09-08 11:11 | PT.OPDS ---
Current Diagnoses Other chronic pain (08/05/23) Low back pain, unspecified (08/05/23) Weakness (08/05/23) Visit Care Team Role Provider Type Emma Garrison MD Attending Provider Non-Staff Family Provider Primary Care Provider Referring Provider Specialty: Medical Address: [address] [place] [address], [place], [address] Email: Visit Number Visit Number 5 Discharge Summary PT-OP-B Current Condition Start: 07/08/23 14:31 Freq: Status: Active Protocol: Document 07/08/23 14:32 NM (Rec: 07/08/23 16:20 NM [id number]) Current Condition History of Current Condition Onset Date 2020, worsening frequency Current Complaints pain, balance, strength History of Current Condition Pt presents with lower L flank pain. She reports that she has had it for years, but states it's growing worse. She feels as if the scissors were left in after her surgery . She is wanting a scan, but has to have PT first. Dr. Garrison referred her. She had stage IV B kidney cancer, removed both. The pain began after the surgeries but not before. Pain is near where her L kidney would be. The spleen and pancreatic tail were removed; she almost during the surgery. Xrays shows collapse at spine, which may be pinching nerve. Pain is along the L side of spine, finger point area. She falls 2-3x/year, denies having any falls around time of surgery. Falls are due to tripping over objects. Her most recent fall tripping over when her dog pulled the leash . Her back pain is worsening, now constant and keeps pt awake at night. States more severe now, thinking about pain all the time. Denies numbness or tingling. States the doctors recently found a lump in her breast, which is being assessed. Prior Treatments and Tests scanned every 6 months, next appt in July Per Xrays 03/2023 provided by pt from 05/09/23 visit with doctor: multilevel spondylosis most notably at L4-5 and L5- S1 Current Functional Impairments (Reported) Functional Limitations- ADL's reports no difficulties with ADLs Functional Limitations- Mobility/Gait car rides 10 minutes, sitting 10 minutes, prolonged standing 30 minutes Functional Limitations- Other wakes 2x/night from sleep to go to bathroom and due to pain PT-OP-C Subjective Start: 07/08/23 14:31 Freq: Status: Active Protocol: Document 08/05/23 14:41 NBM (Rec: 08/05/23 16:07 NBM [id number]) OP-PT Subjective Patient Comments Patient Comments Denia reports she now knows what's wrong with her. Her oncologist says her issue is postsurgical scar tissue that is seen on CT posterior to the left kidney. She also has degenerative disc disease in the L4-L5 area but that is lower than the location of the pain. She states the scar tissue is a C shape just as she's described it. She's going to [place] next week and then will be back the Friday before her 6th PT appt. They 're going to proceed with her shot and she's waiting for call from pain specialist to schedule. She's been doing a lot of walking this week and thinks that's triggered her hip arthritis pain on both sides. When she receives soft tissue work in PT sometimes even when it feels good during session it's painful later so she's uncomfortable with having the scar tissue pressed on being that close to the little bit of kidney she has left. PT-OP-E Functional Tests Start: 07/08/23 14:31 Freq: Status: Active Protocol: Document 07/08/23 14:32 NM (Rec: 07/08/23 16:20 NM [id number]) Functional Tests Five Times Sit to Stand Test Score 17.8 seconds Comments pain reproduced with return to sitting; 20 plinth Other Forward Trunk Flexion Test Name of Test measured finger to floor Score 0 Comment reports no reproduction in pain PT-OP-F Manual Assessment Start: 07/08/23 14:31 Freq: Status: Active Protocol: Document 07/08/23 14:32 NM (Rec: 07/08/23 16:20 NM [id number]) Manual Assessments Soft Tissue Assessment Soft Tissue Mobility Assessment Increased tone along L lumbar paraspinals Joint Mobility Assessment Joint Mobility Assessment Hypomobility of lumbar spine with P-A springing. Pain reproduced with gentle P-A springing along L transverse processes. Minimal pain with P -A springing of L SIJ PT-OP-G Mobility & Gait Start: 07/08/23 14:31 Freq: Status: Active Protocol: Document 07/08/23 14:32 NM (Rec: 07/08/23 16:20 NM [id number]) OP Gait Assessment Gait Gait Assistance Required: Independent Distance (Feet) 150 Gait Deviations General Gait Pattern Antalgic,Flexed Trunk,Lateral Trunk Lean Factors Limiting Gait Function Factors Limiting Gait Function Pain,Poor Balance PT-OP-H Neuro Start: 07/08/23 14:31 Freq: Status: Active Protocol: Document 07/08/23 14:32 NM (Rec: 07/08/23 16:20 NM [id number]) Sensation Evaluation Comments Summary Comments Will assess in next session. Did not formally assess due to time Deep Tendon Reflex & Clonus Assessment Deep Tendon Reflex Right Patellar Deep Tendon Reflex 1+ Diminished Left Patellar Deep Tendon Reflex 2+ Normal PT-OP-J Posture/Palpation/Skin Start: 07/08/23 14:31 Freq: Status: Active Protocol: Document 07/08/23 14:32 NM (Rec: 07/08/23 16:20 NM [id number]) Posture Evaluation Position Standing Head/C-Spine Posture Forward Head T-Spine Posture Increased Kyphosis Pelvis Posture Posterior Tilted Weight Distribution Balanced Knee Posture (L) Genu Valgus,(R) Genu Valgus Patellar Posture (L) Superior,(R) Superior Palpation Assessment Location thoracolumbar spine Palpation Findings Muscle Guarding Palpation Details No spasms, but increased muscle guarding along paraspinals, L>R. Tenderness along lateral to L lower thoracic and L upper lumbar spine, in a C position with focal tenderness at L T12-L1. Palpable knot on L side. Minimal tenderness of L SIJ/ PSIS. No tenderness along midline of spine with palpation PT-OP-K Range of Motion Start: 07/08/23 14:31 Freq: Status: Active Protocol: Document 07/08/23 14:32 NM (Rec: 07/08/23 16:20 NM [id number]) Lumbar Spine Range of Motion Lumbar Spine Active Percentage Flexion 100 Extension 75 Lateral Flexion Left 100 Lateral Flexion Right 100 ROM Limitations Soft Tissue Tightness Comments No pain reproduced with standing extension Hip Goniometric Range of Motion Hip Right Flexion w/Knee Flexed 110 Extension 10 Internal Rotation 40 External Rotation 30 Left Flexion w/Knee Flexed 110 Extension 10 Internal Rotation 30 External Rotation 30 PT-OP-L Special Tests Start: 07/08/23 14:31 Freq: Status: Active Protocol: Document 07/08/23 14:32 NM (Rec: 07/08/23 16:20 NM [id number]) Special Tests Lumbar Spine Special Tests Straight Leg Raise Test Results - Slump Test Results - Distraction Test Results + Comments reports slight decrease in symptoms Payan/Quadrant Test Results + Comments L only, no compression performed PT-OP-M Strength Start: 07/08/23 14:31 Freq: Status: Active Protocol: Document 07/08/23 14:32 NM (Rec: 07/08/23 16:20 NM [id number]) Trunk Strength Trunk Manual Muscle Testing Flexion 3 Fair Extension 3 Fair Rotation Left 4 Good Rotation Right 4 Good Lateral Flexion Left 4 Good Lateral Flexion Right 4 Good Comments Able to stabilize against resistance. Mild reproduction in L sided point-tenderness w/ resisted L rotation Hip Strength Hip Manual Muscle Testing Right Flexion (L2) 4 Good Extension (S1) 4 Good Abduction 4 Good Comments Low back pain reproduced on L side with hip extension Left Flexion (L2) 4 Good Extension (S1) 4 Good Abduction 4 Good Comments L hip pain with sidelying testing on greater trochanter. Low back pain reproduced with hip extension Knee Strength Knee Manual Muscle Testing Right Flexion (S2) 4+ Good+ Extension (L3) 4+ Good+ Left Flexion (S2) 4+ Good+ Extension (L3) 4+ Good+ Ankle/Foot Strength Ankle and Foot Manual Muscle Testing Right Dorsiflexion (L4) 3 Fair Plantarflexion (S1) 4 Good Comments Tested with heel/toe walking. Difficulty with heel walking, maintaining DF and balance Left Dorsiflexion (L4) 3 Fair Plantarflexion (S1) 4 Good Comments Tested with heel/toe walking. Difficulty with heel walking, maintaining DF and balance PT-OP-T Assessment and Plan Start: 07/08/23 14:31 Freq: Status: Active Protocol: Document 09/08/23 11:06 NM (Rec: 09/08/23 11:11 NM [id number]) Physical Therapy Assessment Goals Five Impairment HEP Impairment not performing daily activty other than ADLs Short Term Goal (STG) Pt will report compliance with HEP at least 3x/wk in order to maximize progression with PT STG Duration 4 weeks Long-Term Goal (LTG) Pt will report compliance with HEP at least 3x/wk in order to maintain progress made during PT LTG Duration 8 weeks Four Impairment balance Impairment reports falls 2-3x/yr Long-Term Goal (LTG) Pt will score at least 19/24 on DGI in order to demonstrate improved balance during gait and decreased fall risk LTG Duration 8 weeks Three Impairment activity Impairment sitting x10 minutes Short Term Goal (STG) Pt will report that she is able to sit at leats 10 minutes without increase in baseline pain in order to demonstrate improved activity tolerance, pain management STG Duration 4 weeks Long-Term Goal (LTG) Pt will report that she is able to sit at least 15 minutes without increase in baseline pain in order to demonstrate improved activity tolerance, pain management LTG Duration 8 weeks Two Impairment strength Impairment 5x STS 17.8 seconds, 20 plinth, reports difficulty with rising from STS Short Term Goal (STG) Pt will be able to perform at least 8 sit to stands without compensation and with pain <7/ 10 in order to demonstrate increased BLE strength STG Duration 4 weeks Long-Term Goal (LTG) Pt will be able to perform 5x STS in at least 12.5 seconds in order to meet age-related norms and demonstrate increased BLE strength LTG Duration 8 weeks One Impairment sleep Impairment waking 2x/night to go to bathroom Short Term Goal (STG) Pt will be educated on sleeping positions in order to improved quality and for pain reduction STG Duration 4 weeks Long-Term Goal (LTG) Pt will report that she is waking <2 times ea night due to back pain in order to demonstrate improved sleep quality and pain management LTG Duration 8 weeks Progress Towards Goals Progress Comments PT goals not met Assessment Summary Assessment Pt was evaluated in June 2023 for back pain. She attended x4 sessions since evaluation. At 08/04 appt with [employer], pt reports that she received her CT results indicating increased scar tissue build up near location of last surgery when pt had L kidney removed. Pt canceled remaining appointments after 08/04 visit. She has not been seen in clinic since 08/04. She made minimal progress toward PT goals. Currently outside of pt plan of care, so pt will need new referral to return to PT. Physical Therapy Plan Frequency and Duration Frequency of Treatment 1x/Week Duration of treatment (weeks) 8 Plan of Care Start Date 07/08/23 Plan of Care End Date 09/05/23 Therapeutic Interventions Therapeutic Interventions Balance Training,Gait Training ,Home Exercise Program,Joint Mobilizations,Manual Therapy, Neuromuscular Re-education, Patient/Caregiver Education, Self-Care/Home Management, Sensory Integration,Soft Tissue Mobilization,Taping, Therapeutic Activities, Therapeutic Exercises Modalities Cold Pack/Ice Massage,Hot Packs Discharge Physical Therapy Discharge Reasons No Longer Attending PT Discharge Comments Pt canceled remaining appointments after 08/04 visit. She has not been seen in clinic since 08/04. Pt will need new referral to return to PT. Next Visit Focus/Plan Next Visit Plan Discharge from PT services
== END 2023-11-04 08:41 | disposition home or self-care (01) ==
LOC: PHYS 14:30
PROVIDERS: Family Provider Internal Medicine Geriatric Medicine; PCP Internal Medicine Geriatric Medicine; Referring Provider Internal Medicine Geriatric Medicine; Visit Provider Internal Medicine Geriatric Medicine
DX: M54.50 Low back pain, unspecified (principal); G89.29 Other chronic pain; R53.1 Weakness
CPT/HCPCS: 97110; 97112; 97140; 97162